=== PATIENT | male | born 1940 | race Caucasian/White ===

== ENCOUNTER → 2017-12-05 12:55 | Outpatient (CLI) | payer MEDICARE, SELFPAY ==
[2017-12-05 15:36] LABS: Prostate Specific Antigen < 0.064 ng/mL (0.10-4.00)
== END ==
PROVIDERS: Family Provider Radiology Radiation Oncology; PCP Internal Medicine; Visit Provider Urology
DX: C61 Malignant neoplasm of prostate (principal)
CPT/HCPCS: 36415; 84153

== ENCOUNTER → 2017-12-30 11:13 | Outpatient (CLI) | payer MEDICARE, SELFPAY ==
--- NOTE | 2017-12-30 | DI.RAD.S_ITS ---
PROCEDURE: XR HIP W PEL IF DONE LT 2V INDICATIONS: 77 year-old male with left hip pain and prostate cancer. TECHNIQUE: AP pelvis with lateral view(s) of the left hip(s). COMPARISON: None. FINDINGS: Bones: No fractures or dislocations. Pelvic ring appears intact. No hip joint degeneration. No suspicious bony lesions. Soft tissues: The visualized bowel gas pattern is normal. No suspicious soft tissue calcifications. Multiple bilateral pelvic phleboliths are unchanged. Patient is status post prostatectomy and bilateral iliac lymph node dissection. IMPRESSION: No imaging explanation for left hip joint region pain. Dictated by: Manuel Schwartz M.D. on 12/30/2017 at 12:05 Approved by: Manuel Schwartz M.D. on 12/30/2017 at 12:06
--- NOTE | 2017-12-30 | DI.RAD.S_ITS ---
PROCEDURE: XR LUMBAR SPINE 2-3V INDICATIONS: 77-year-old male with low back pain and prostate cancer. TECHNIQUE: 3 views of the lumbar spine were acquired. COMPARISON: [facility], ADEN, L-SPINE 2-3 VIEWS, 04/09/2017, 11:19. [facility], CR, SPINE LUMB 6+VW, 11/21/2015, 9:03. FINDINGS: Bones: 5 uzp-par-vpoifel vertebrae are present. There is normal bony alignment. Mid and lower lumbar spine disc and facet joint degeneration is unchanged. No vertebral body compression fractures. No suspicious bony lesions. Soft tissues: Overlying bowel gas pattern is normal. No suspicious soft tissue calcifications. Multiple bilateral pelvic phleboliths are incidentally noted. Patient is status post prostatectomy and iliac lymph node dissection. There is minimal aortic atherosclerosis. IMPRESSION: 1. No new findings to suggest prostate cancer metastases. 2. 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 Dictated by: Manuel Schwartz M.D. on 12/30/2017 at 12:03 Approved by: Manuel Schwartz M.D. on 12/30/2017 at 12:04
--- NOTE | 2017-12-30 | DI.RAD.S_ITS ---
PROCEDURE: XR CERVICAL SPINE 2V OR 3V INDICATIONS: 77-year-old male with prostate cancer. TECHNIQUE: 3 view(s) of the cervical spine were acquired. COMPARISON: [facility], CR, XR CERVICAL SPINE WITH OBLIQUES, 09/30/2017, 15:08. [facility], CR, CERVICAL SPINE 2 OR 3 VIEWS, 04/09/2017, 11:19. FINDINGS: Bones: No fractures or dislocations to the C7 level. The lateral masses of C1 appear intact on the odontoid view. Moderate C5-C6 and C6-C7 disc degeneration is unchanged. No suspicious bony lesions. Soft tissues: No prevertebral soft tissue swelling. IMPRESSION: Lower cervical spine disc degeneration as before, without new findings to suggest prostate cancer metastases. Dictated by: Manuel Schwartz M.D. on 12/30/2017 at 12:06 Approved by: Manuel Schwartz M.D. on 12/30/2017 at 12:08
== END ==
PROVIDERS: Family Provider Radiology Radiation Oncology; PCP Internal Medicine; Visit Provider Urology
DX: M51.36 Other intervertebral disc degeneration, lumbar region (principal); M50.322 Other cervical disc degeneration at C5-C6 level; M54.5 Low back pain; M25.552 Pain in left hip; Z85.46 Personal history of malignant neoplasm of prostate
CPT/HCPCS: 72040; 72100; 73502

== ENCOUNTER → 2018-03-07 08:59 | Outpatient (CLI) | payer MEDICARE, SELFPAY ==
[2018-03-07 10:56] LABS: Prostate Specific Antigen Scrn < 0.064 ng/mL (0.1-4.0)
== END ==
PROVIDERS: Family Provider Radiology Radiation Oncology; Visit Provider Urology
DX: Z85.46 Personal history of malignant neoplasm of prostate (principal)
CPT/HCPCS: 36415; G0103

== ENCOUNTER → 2018-05-27 14:41 | Outpatient (CLI) | payer MEDICARE, SELFPAY ==
[2018-05-27 18:20] LABS: Prostate Specific Antigen < 0.064 ng/mL (0.10-4.00)
== END ==
PROVIDERS: Family Provider Radiology Radiation Oncology; Visit Provider Radiology Radiation Oncology
DX: Z85.46 Personal history of malignant neoplasm of prostate (principal)
CPT/HCPCS: 36415; 84153

== ENCOUNTER 2018-08-19 06:19 | Day surgery (SDC) | payer MEDICARE, SELFPAY ==
[2018-08-19 06:58] VITALS: BP 138/67; PULSE 48; RESP 15; TEMP 36.6; O2SAT 96; BMI 25.9
[2018-08-19] MEDS: PROPARACAINE 0.5% OPHTH SOL 2 DROPS EYE-OP (07:09)
[2018-08-19] MEDS: CATARACT EYE COMPOUND (10 DROPS/SYRINGE) 3 DROPS EYE-OP (07:15)
--- NOTE | 2018-08-19 07:46 | SUR.OPER ---
Supine on eye stretcher, head on extension cradle secured with tape. Arms tucked at sides with blanket. Pillow under knees.
[2018-08-19] MEDS: MOXIFLOXACIN OPHTH DROPS 3 ML BOTTLE 2 DROPS INJ (07:53)
[2018-08-19] MEDS: PHENYLEPHRINE/LIDOCAINE VIAL (OR) 0.2 ML EYE-OP (07:53)
[2018-08-19] MEDS: CHONDROIDTIN/SOD HYALURONATE 1.05 ML SYRINGE INTRAOCULA (07:54)
[2018-08-19] MEDS: TETRACAINE 0.5% OPHTH DROPS 4 ML 2 DROPS EYE-OP (07:54)
[2018-08-19] MEDS: TRIAMCINOLONE 50 MG/5 ML VIAL INJ (07:54)
[2018-08-19] MEDS: LIDOCAINE JELLY 2% 5 ML 1 APPLIC TOP (07:54)
[2018-08-19] MEDS: BALANCED SALT IRRIG SOLN NO.2 500 ML, EPINEPHrine 1 MG IRR (07:55)
--- NOTE | 2018-08-19 08:05 | PM.PREOP ---
Pre-operative Note Interval Note History & Physical reviewed/Exam performed by Physician: No Changes to H&P: No
--- NOTE | 2018-08-19 08:06 | P.OP_ITS ---
Operative Date/Time/Diagnoses Pre-op diagnosis: Nuclear cataract right eye Procedure & Clinicians Procedure: Cataract Surgery Same procedure as scheduled: Yes Surgeon: Troy Jones Anesthesia Type: MAC +/- and Sedation Operative Notes Procedure in detail: Patient brought to the operating suite. Tetracaine drops placed in the right eye. Patient was prepped and draped in sterile manner. Wire lid speculum was placed in the eye. Betadine drops were placed on the eye. This was irrigated. Lidocaine jelly was placed on the eye. A paracentesis port was created with a side-port blade. 0.1 mL 1% preservative free lidocaine was injected into the anterior chamber. The anterior chamber was deepened with viscoelastic. 2.6 mm keratome was used to create a temporal clear corneal incision. Cystotome and Utrata forceps were used to create continuous tear capsulorrhexis. Balanced salt solution was used to hydro dissect the nucleus. The phacoemulsification handpiece was inserted and the nucleus was removed using the stop and chop technique. The irrigation aspiration handpiece was inserted and the remaining cortex was removed. Anterior chamber was deepened with viscoelastic. An Barbosa ZCB00 intraocular lens with a power of 19.5 was injected into the capsular bag. Irrigation aspiration handpiece was inserted and the remaining viscoelastic was removed. Incision was hydrated with balanced salt solution and found to be leak free with pressure with Weck- Gail sponges. 0.1 mL Vigamox injected anterior chamber. 0.3 mL Kenalog 10 mg was injected subconjunctivally. Lid speculum was removed. The patient left the operating room in excellent condition. Complications: none Condition: stable Disposition: same day surgery
[2018-08-19 08:10] VITALS: BP 141/80; PULSE 53; RESP 12; TEMP 36.7; O2SAT 97
== END 2018-08-19 08:18 ==
LOC: OR 06:22
PROVIDERS: Family Provider Radiology Radiation Oncology; Visit Provider Ophthalmology
DX: H25.11 Age-related nuclear cataract, right eye (principal)
CPT/HCPCS: J0171; J2250; J3010; J3301

== ENCOUNTER 2018-09-02 10:23 | Day surgery (SDC) | payer MEDICARE, SELFPAY ==
[2018-09-02] MEDS: PROPARACAINE 0.5% OPHTH SOL 2 DROPS EYE-OP (10:55)
[2018-09-02] MEDS: CATARACT EYE COMPOUND (10 DROPS/SYRINGE) 3 DROPS EYE-OP (10:57)
--- NOTE | 2018-09-02 10:59 | SUR.PREOP ---
After first eye drop was given, patient complained of feeling light headed. Assisted onto stretcher w/2 additional nurses. 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
[2018-09-02 11:01] VITALS: BP 152/74; PULSE 45; RESP 13; TEMP 36.4; O2SAT 98; BMI 25.9
[2018-09-02 11:16] VITALS: BP 136/61; PULSE 42; RESP 14; O2SAT 98
--- NOTE | 2018-09-02 11:19 | PM.PREOP ---
Pre-operative Note Interval Note History & Physical reviewed/Exam performed by Physician: No Changes to H&P: No
--- NOTE | 2018-09-02 11:20 | P.OP_ITS ---
Operative Date/Time/Diagnoses Pre-op diagnosis: Nuclear Cataract Left eye Post-op diagnosis: same Procedure & Clinicians Surgeon: Troy Jones Anesthesia Type: MAC +/- and Sedation Operative Notes Procedure in detail: Patient brought to the operating suite. Tetracaine drops placed in the left eye. Patient was prepped and draped in sterile manner. Wire lid speculum was placed in the eye. Betadine drops were placed on the eye. This was irrigated. Lidocaine jelly was placed on the eye. A paracentesis port was created with a side-port blade. 0.1 mL 1% preservative free lidocaine was injected into the anterior chamber. The anterior chamber was deepened with viscoelastic. 2.6 mm keratome was used to create a temporal clear corneal incision. Cystotome and Utrata forceps were used to create continuous tear capsulorrhexis. Balanced salt solution was used to hydro dissect the nucleus. The phacoemulsification handpiece was inserted and the nucleus was removed using the stop and chop technique. The irrigation aspiration handpiece was inserted and the remaining cortex was removed. Anterior chamber was deepened with viscoelastic. An Barbosa ZCB00 intraocular lens with a power of 20.5 was injected into the capsular bag. Irrigation aspiration handpiece was inserted and the remaining viscoelastic was removed. Incision was hydrated with balanced salt solution and found to be leak free with pressure with Weck- Gail sponges. 0.1 mL Vigamox injected anterior chamber. 0.3 mL Kenalog 10 mg was injected subconjunctivally. Lid speculum was removed. The patient left the operating room in excellent condition. Complications: none Condition: stable Disposition: same day surgery
[2018-09-02] MEDS: MOXIFLOXACIN OPHTH DROPS 3 ML BOTTLE 2 DROPS INJ (11:30)
[2018-09-02] MEDS: PHENYLEPHRINE/LIDOCAINE VIAL (OR) 0.2 ML EYE-OP (11:30)
[2018-09-02] MEDS: TETRACAINE 0.5% OPHTH DROPS 4 ML 2 DROPS EYE-OP (11:31)
[2018-09-02] MEDS: CHONDROIDTIN/SOD HYALURONATE 1.05 ML SYRINGE INTRAOCULA (11:31)
[2018-09-02] MEDS: LIDOCAINE JELLY 2% 5 ML 1 APPLIC TOP (11:31)
[2018-09-02] MEDS: TRIAMCINOLONE 50 MG/5 ML VIAL INJ (11:31)
[2018-09-02] MEDS: BALANCED SALT IRRIG SOLN NO.2 500 ML, EPINEPHrine 1 MG IRR (11:32)
[2018-09-02 13:47] VITALS: BP 121/64; PULSE 49; RESP 12; TEMP 36.8; O2SAT 98
== END 2018-09-02 12:05 | disposition home or self-care (01) ==
LOC: OR 10:25
PROVIDERS: Family Provider Radiology Radiation Oncology; Visit Provider Ophthalmology
DX: H25.12 Age-related nuclear cataract, left eye (principal)
CPT/HCPCS: J0171; J2250; J3301

== ENCOUNTER → 2018-09-16 08:16 | Outpatient (CLI) | payer MEDICARE, SELFPAY ==
--- NOTE | 2018-09-16 | DI.ECHO.S_ITS ---
[place] [facility]---------+ [facility] +---------+ : : [address] : : : : [id number] : : : : Phone: [phone]+ Echocardiogram Report + + :Name: OSIRIS NOLEN Study Date: 09/16/2018 Height: 70 in : :[facility] Exam Location: [facility] Weight: 197 lb : : Gender: Male BSA: 2.1 m2 : :: 1940 Age: 78 yrs BP: 162/62 mmHg: :Reason For Study: Cardiomeagly : :Ordering Physician: Dr. Morel : :Jesse Performed By: Kizzy Ash : :Referring: GIOVANI CARVAJAL : + + Interpretation Summary Left ventricular size is at the upper limits of normal and left ventricular systolic function is normal without focal wall motion abnormalities with the ejection fraction visually estimated to be 60-65%. The right ventricle is at the upper limits of normal in size and right ventricular systolic function is normal. The right ventricular systolic pressure is estimated to be at least 31 mmHg based on an estimated right atrial pressure of 3 mm Hg. Both atria are moderately dilated. There is no significant valvular heart disease. The ascending aorta and aortic arch are mildly enlarged. Procedure: A two-dimensional transthoracic echocardiogram with color flow and Doppler was performed. The study quality was technically adequate. There is no prior echocardiogram noted for this patient. The patient was in normal sinus rhythm during the exam. Left Ventricle: Left ventricular size is at the upper limits of normal. There is normal left ventricular wall thickness. Left ventricular systolic function is normal without focal wall motion abnormalities. The ejection fraction is estimated to be 60-65%. Diastolic function could not be accurately assessed due to contradictory data. Right Ventricle: The right ventricle is at the upper limits of normal in size. The right ventricular systolic function is normal. Atria: Both atria are moderately dilated. The interatrial septum is intact with no evidence for an atrial septal defect. Mitral Valve: The mitral valve is normal in structure and function. There is trace mitral regurgitation. Aortic Valve: The aortic valve is trileaflet. The aortic valve opens well. There is trace aortic regurgitation. Tricuspid Valve: The tricuspid valve is normal in structure and function. There is trace tricuspid regurgitation. The right ventricular systolic pressure is estimated to be at least 31 mmHg based on an estimated right atrial pressure of 3 mm Hg. Pulmonic Valve: The pulmonic valve is normal in structure and function. There is trace pulmonic regurgitation. There is no significant valvular heart disease. Great Vessels: The aortic root is normal size. The ascending aorta is mildly enlarged. The aortic arch is mildly enlarged. The IVC is of normal diameter and collapses greater than 50% with a sniff. This suggests a low right atrial pressure of 3 mm Hg. Pericardium/ Pleura There is no pericardial effusion. There is no pleural effusion. MMode/2D Measurements & Calculations LVIDd: 5.7 cm LVOT diam: 2.4 cm LVIDs: 3.6 cm Ao root diam: 3.6 cm FS: 35.7 % asc Aorta Diam: 3.8 cm IVSd: 1.1 cm Ao Arch Diam (Prox Trans): 3.3 cm LVPWd: 1.1 cm LV boss. diameter/BSA (cm/m^2): 2.7 LV sys. diameter/BSA (cm/m^2): 1.8 LA A2 area: 24.3 cm2 RA long axis: 4.9 cm LA A4 area: 27.0 cm2 RA area: 23.4 cm2 LA length (vol): 5.8 cm RA vol: 94.6 ml LA vol: 96.0 ml RA : 45.6 ml/m2 LA vol index: 46.3 ml/m2 RVD1 (basal): 4.8 cm TAPSE: 3.4 cm Doppler Measurements & Calculations Ao V2 max: 141.4 cm/sec LVOT Max Tong: 121.3 cm/sec Ao V2 mean: 93.5 cm/sec LV V1 max P.9 mmHg Ao max P.0 mmHg LV V1 VTI: 25.7 cm Ao mean P.0 mmHg DERRICK(I,D): 3.6 cm2 Ao V2 VTI: 31.6 cm DERRICK(V,D): 3.8 cm2 sev ratio: 0.81 DERRICK indexed to BSA (cm^2/m^2): 1.7 MV E max tong: 74.2 cm/sec TR max tong: 262.7 cm/sec MV A max tong: 65.2 cm/sec TR max P.6 mmHg MV E/A: 1.1 PA V2 max: 70.6 cm/sec Med Peak E' Tong: 8.4 cm/sec PA V2 mean: 46.7 cm/sec E/E' med: 8.8 PA mean P.0 mmHg Lat Peak E' Tong: 9.7 cm/sec PA pr(Accel): -0.85 mmHg E/E' lat: 7.7 E/e' average: 8.2 MV dec time: 0.24 sec SV(LVOT): 114.0 ml Reading Physician:PM
== END ==
PROVIDERS: PCP Internal Medicine; Visit Provider Internal Medicine
DX: I51.7 Cardiomegaly (principal)
CPT/HCPCS: 93306

== ENCOUNTER → 2018-10-30 11:36 | Outpatient (CLI) | payer MEDICARE, SELFPAY ==
--- NOTE | 2018-10-30 | DI.CT.S_ITS ---
PROCEDURE: CT KIDNEY URETER BLADDER (KUB) INDICATIONS: Right flank pain TECHNIQUE: Noncontrast 5 mm thick sections acquired from the diaphragms to the symphysis. 5 mm thick coronal and sagittal reformats were then performed. For radiation dose reduction, the following was used: automated exposure control, adjustment of mA and/or kV according to patient size. COMPARISON: [facility], CT, CHEST/ABD/PEL WITH CONTRAST, 04/03/2017, 8:31. [facility], MR, MR PELVIS WITHOUT CONTRAST, 06/13/2017, 15:07. FINDINGS: Image quality: Excellent. Lung bases: Lung bases are clear. Heart size is normal. Urinary system: Both kidneys are normal in size. No kidney stones. No hydronephrosis or perinephric fat stranding. Both ureters appear non-dilated throughout their expected courses. Bladder wall thickness is normal; no calcified bladder stones. Prostate is surgically absent. Other solid organs: There are a couple of 1-1.5 cm indeterminate hepatic hypodensities, one in the right hepatic lobe and one in the left hepatic lobe, most likely cysts. Liver is normal in size. Gallbladder is normal. Pancreas is normal in contours. Spleen is normal in size. No adrenal nodules. Peritoneum and bowel: Unenhanced bowel loops demonstrate normal wall thickness and caliber. There are a few colonic diverticula scattered in colon. No free fluid or air. Nodes and vessels: No retroperitoneal or mesenteric adenopathy by size criteria. Aorta and inferior vena cava are normal in caliber. Abdominal wall: No ventral hernias. Pelvis: No free pelvic fluid. No inguinal hernias or adenopathy. Bones: No suspicious bony lesions. No vertebral body compression fractures. IMPRESSION: 1. No renal stone hydronephrosis. 2. Prostatectomy. 3. A couple of 1-1.5 cm indeterminate hepatic hypodensities in liver, most likely a cysts. 4. Mild diverticulosis without acute diverticulitis. Dictated by: Tamar Salazar M.D. on 10/30/2018 at 12:22 Approved by: Tamar Salazar M.D. on 10/30/2018 at 12:36
== END ==
PROVIDERS: PCP Internal Medicine; Visit Provider Urology
DX: R10.9 Unspecified abdominal pain (principal); K57.90 Diverticulosis of intestine, part unspecified, without perforation or abscess without bleeding
CPT/HCPCS: 74176

== ENCOUNTER 2019-03-06 12:27 | Day surgery (SDC) | payer MEDICARE, SELFPAY ==
--- NOTE | 2019-03-06 | PATH_ITS ---
[facility] Accession Number: [id number] . 01 Material submitted: . colon - POLYP AT CECUM . 02 Diagnosis: Polyp at Cecum: Portions of tubular adenoma x 2; negative for high-grade dysplasia. [facility]/03/09/2019 . 02 Electronically signed: . Ameena Fulton MD, Pathologist NPI- [id number] . 01 Gross description: . POLYP AT CECUM: Received in formalin are 2 fragment(s) of gomez, soft tissue measuring 0.9 x 0.3 x 0.2 cm to 0.4 x 0.4 x 0.4 cm submitted entirely in 1 cassette(s) /CKI /CKI . 02 Pathologist provided ICD-10: K63.5 . 02 CPT . 099735 Performed at: 01 [facility] [address] [id number] MD Aleks Mac MD Phone: [phone] Performed at: 02 [facility] [place] [address] [place], [place] [id number] MD Nupur Ontiveros MD Phone: [phone]
[2019-03-06 12:47] VITALS: BP 125/74; PULSE 64; RESP 15; TEMP 36.8; O2SAT 95; BMI 25.0
--- NOTE | 2019-03-06 12:56 | PM.HP.1 ---
History of Present Illness Date Patient Seen: 03/06/19 Time Patient Seen: 12:56 Chief complaint: [id number] SCREENING COLONSCOPY Narrative: Patient is here for screening colonoscopy is asymptomatic. He has had polyps in the past and is now on a 5 year colonoscopy plan. Patient History Social History household members: spouse Family & Social History Social History: household members spouse Meds Home Medications Medication Instructions Recorded Confirmed Type VITAMIN D (Vitamin D3) 1,000 units PO QDAY #0 06/27/12 09/02/18 History loratadine [Claritin] 10 mg PO Q DAY #0 06/27/12 09/02/18 History simvastatin 10 mg PO QDAY #0 06/27/12 09/02/18 History meloxicam 15 mg PO DAILY 09/02/18 09/02/18 History Allergies Allergy/AdvReac Type Severity Reaction Status Date / Time No Known Drug Allergies Allergy Unknown Verified 09/02/18 10:50 [NO KNOWN DRUG ALLERGIES] Review of Systems Review of Systems All systems reviewed & are unremarkable except as noted in HPI and below Exam Vital Signs (past 8 hours): - 03/06/19 12:47 Temperature 98.2 F Pulse Rate 64 Respiratory Rate 15 Blood Pressure 125/74 Pulse Oximetry 95 Oxygen Delivery Method Room Air Narrative Exam Narrative: Patient is alert and oriented He is asymptomatic Lungs are clear Heart regular rhythm no murmur Abdomen soft nontender no masses no organomegaly Rectal will be done at colonoscopy Assessment & Plan Assessment & Plan narrative: Patient is at polyps in the past removed by the colonoscope. At 1 point he was having scopes every 3 years now he is on a 5 year plan. He is asymptomatic with no melena and no hematochezia no pain. He understands the nature of the procedure and agrees with no further questions
[2019-03-06] MEDS: SODIUM CHLORIDE 0.9% 1,000 ML 200 ML IV (13:06)
[2019-03-06] MEDS: fentaNYL 250 MCG/5 ML INJ IV (14:00)
[2019-03-06] MEDS: MIDAZOLAM 5 MG/5 ML VIAL IV (14:01)
--- NOTE | 2019-03-06 14:03 | PM.OP.ENDO ---
Operative Date/Time/Diagnoses Date of procedure: 03/06/19 Time of procedure: 14:03 Pre-op diagnosis: Screening colonoscopy Post-op diagnosis: other (5 mm polyp in the cecum removed) Procedure & Clinicians Study performed: Total colonoscopy to the cecum with cecal polypectomy Same procedure as scheduled: Yes Surgeon: Jadon Suggs Procedure Notes SCOAP/Timeout: Was done Procedure in detail: The patient was properly identified during surgical pause given a total of 5 mg of Versed and 100 micro g of fentanyl throughout the procedure which was very well tolerated. The flexible fiberoptic colonoscope inserted transanally to the cecum. Patient had 1 polyp a 5 mm sessile polyp seen in the cecum which I removed using the cold forceps. This was submitted for histology. Patient has scant diverticulosis in the sigmoid also. No other abnormalities encountered. Procedure was well tolerated Scope withdrawal time: 10 Sedation minutes: 20 Findings: polyp Impression: 5 mm cecal polyp removed Recommendations: Colonscopy in 3 years Disposition: PACU
[2019-03-06 14:08] VITALS: BP 129/64; PULSE 56; RESP 12; TEMP 36.3; O2SAT 95
[2019-03-06 14:13] VITALS: BP 133/61; PULSE 54; RESP 13; O2SAT 95
[2019-03-06 14:18] VITALS: BP 108/57; PULSE 65; RESP 12; O2SAT 95
[2019-03-06 14:25] VITALS: BP 115/63; PULSE 58; RESP 15; O2SAT 95
[2019-03-06 14:53] VITALS: BP 118/67; PULSE 54; RESP 18; TEMP 36.4; O2SAT 98
== END 2019-03-06 14:56 | disposition home or self-care (01) ==
PROVIDERS: PCP Internal Medicine; Visit Provider Surgery
PROC: 0DJD8ZZ Inspection of Lower Intestinal Tract, Via Natural or Artificial Opening Endoscopic (ICD-10-PCS; CPT 45378; principal; 2019-03-06 13:45)
DX: Z86.010 Personal history of colon polyps (principal); D12.0 Benign neoplasm of cecum
CPT/HCPCS: 45380; 88305; 99152; J2250; J3010

== ENCOUNTER → 2019-04-14 12:37 | Outpatient (CLI) | payer MEDICARE, SELFPAY ==
[2019-04-14 15:38] LABS: Prostate Specific Antigen < 0.064 ng/mL (0.10-4.00)
== END ==
PROVIDERS: Family Provider Internal Medicine; PCP Internal Medicine; Visit Provider Urology
DX: C61 Malignant neoplasm of prostate (principal)
CPT/HCPCS: 36415; 84153

== ENCOUNTER → 2019-04-16 09:59 | Outpatient (CLI) | payer MEDICARE, SELFPAY ==
[2019-04-16 10:53] LABS: Aspartate Aminotransferase 19 IU/L (17-59); Cholesterol 173 mg/dL (140-199); HDL Cholesterol 68 mg/dL (40-60); LDL Cholesterol Calculated 62 mg/dL (<100); Triglycerides 214 mg/dL (35-150)
== END ==
PROVIDERS: PCP Internal Medicine; Visit Provider Internal Medicine
DX: E78.2 Mixed hyperlipidemia (principal)
CPT/HCPCS: 36415; 80061; 84450

== ENCOUNTER → 2019-06-01 08:11 | Outpatient (CLI) | payer MEDICARE, SELFPAY ==
--- NOTE | 2019-06-01 | DI.MG.S_ITS ---
MALE BILATERAL DIGITAL DIAGNOSTIC MAMMOGRAM 3D/2D: 06/01/2019 CLINICAL: Breast pain Baseline exam. No prior exams were available for comparison. There is gynecomastia in the right breast in the sub-areolar depth that correlates with clinical concern and reported pain. There also is gynecomastia in the left breast in the sub-areolar depth. No significant masses, calcifications, or other findings are seen in either breast. IMPRESSION: There is no mammographic evidence of malignancy. Recommend clinical follow up for continued symptomatology. Findings and recommendations were discussed with the patient during today's visit. This exam was interpreted at Station ID: [id number]. NOTE: For mammograms, a report in lay terms will be sent to the patient. Approximately 15% of breast malignancies will not be visualized mammographically. In the management of a palpable breast mass, a negative mammogram must not discourage biopsy of a clinically suspicious lesion. Electronically Signed By: Edward Botello M.D. aty/:06/01/2019 08:54:59 ACR BI-RADS Category 2: Benign Finding(s) 3342F
== END ==
PROVIDERS: PCP Internal Medicine; Visit Provider Internal Medicine
DX: N64.4 Mastodynia (principal); N62 Hypertrophy of breast
CPT/HCPCS: 77066; G0279

== ENCOUNTER 2020-01-15 08:04 | Emergency (ER) | payer MEDICARE, SELFPAY ==
[2020-01-15 08:23] VITALS: BP 194/84; PULSE 54; RESP 18; TEMP 36.4; O2SAT 97; BMI 25.1
--- NOTE | 2020-01-15 08:32 | DI.CT.S_ITS ---
PROCEDURE: CT ABDOMEN PELVIS WO CON INDICATIONS: non-contrast stone study for left flank pain TECHNIQUE: Noncontrast 5 mm thick sections acquired from the diaphragms to the symphysis. 5 mm thick coronal and sagittal reformats were then performed. For radiation dose reduction, the following was used: automated exposure control, adjustment of mA and/or kV according to patient size. COMPARISON: [facility], CT, CHEST/ABD/PEL WITH CONTRAST, 04/03/2017, 8:31. [facility], CT, CT KIDNEY URETER BLADDER (KUB), 10/30/2018, 11:42. FINDINGS: Image quality: Excellent. Lung bases: There is minimal scarring or atelectasis in the left lung base. Heart size is normal. Urinary system: No renal stones or hydronephrosis. Mild nonspecific perinephric stranding is redemonstrated bilaterally. A cortical cyst is again noted posteriorly in the left kidney. Both ureters appear non-dilated throughout their expected courses. Bladder wall thickness is normal; no calcified bladder stones. The prostate is surgically absent. No discrete mass demonstrated in the surgical bed. Other solid organs: Evaluation of the liver demonstrates 2 stable small hepatic cysts. Gallbladder appears within normal limits without calcified gallstones. Pancreas is normal in contours without peripancreatic fat stranding or fluid collections. Spleen is normal in size. No adrenal nodules. Kidneys demonstrate no hydronephrosis. Peritoneum and bowel: Unenhanced bowel loops demonstrate normal wall thickness and caliber. The appendix is normal in appearance. There is colonic diverticulosis without acute diverticulitis. No free fluid or air. Nodes and vessels: No retroperitoneal or mesenteric adenopathy by size criteria. Aorta and inferior vena cava are normal in caliber. Abdominal wall: No ventral hernias. Pelvis: No free pelvic fluid. No inguinal hernias or adenopathy. Bones: No suspicious bony lesions. No vertebral body compression fractures. IMPRESSION: 1. No evidence of nephrolithiasis or obstructive uropathy. 2. Colonic diverticulosis without acute diverticulitis. Dictated by: Aleks Phelps M.D. on 01/15/2020 at 9:04 Approved by: Aleks Phelps M.D. on 01/15/2020 at 9:16
[2020-01-15 08:34] LABS: Add Manual Diff / Slide Review NO; Basophils Absolute Auto 0 /uL (0-100); Basophils Percent Auto 1.1 % (0-2); Eosinophils Absolute Auto 100 /uL (0-450); Eosinophils Percent Auto 2.9 % (2-4); Hematocrit 42.8 % (41-53); Hemoglobin 15.1 g/dL (13.5-17.5); Lymphocytes Absolute Auto 1100 /uL (1100-4500); Mean Corpuscular HGB Conc 35.4 % (30-36); Mean Corpuscular Hemoglobin 34.3 PG (26-34); Mean Corpuscular Volume 96.9 fL (80-100); Monocytes Absolute Auto 300 /uL (0-900); Monocytes Percent Auto 9.7 % (3-14); Neutrophils Absolute Auto 1800 /uL (1500-7000); Neutrophils Percent Auto 53.3 % (50-75); Platelet Count 148 X10^3/uL (150-400); Red Blood Cell Count 4.42 X10^6/uL (4.5-5.9); Red Cell Distribution Width 12.4 % (11.6-14.8); White Blood Cell Count 3.4 X10^3/uL (4.5-11.0)
[2020-01-15 08:35] LABS: INR 0.9 (0.9-1.3); Prothrombin Time 10.6 SECONDS (10.1-12.7)
[2020-01-15 08:38] LABS: PTT Partial Thromboplastin Tim 31 SECONDS (26.4-36.2)
[2020-01-15 08:41] LABS: Alanine Aminotransferase 25 IU/L (<50); Albumin 4.7 g/dL (3.5-5.0); Albumin Globulin Ratio 1.7 (1.0-2.8); Alkaline Phosphatase 77 U/L (38-126); Aspartate Aminotransferase 30 IU/L (17-59); BUN Creatinine Ratio 30.2 (6-22); Bilirubin Total 0.9 mg/dL (0.2-1.3); Blood Urea Nitrogen 19 mg/dL (9-20); Calcium 9.7 mg/dL (8.4-10.2); Carbon Dioxide 25 mmol/L (22-32); Chloride 106 mmol/L (98-107); Estimated Glomerular Filt Rate > 60.0 mL/min (>60); Globulin 2.8 g/dL (1.7-4.1); Glucose 105 mg/dL (80-110); HEMOLYSIS < 15 (0-50); Lipase 90 U/L (23-300); Sodium 138 mmol/L (137-145); Total Protein 7.5 g/dL (6.3-8.2)
[2020-01-15] MEDS: KETOROLAC 60 MG/2 ML VIAL 15 MG IV (09:07)
[2020-01-15 09:12] VITALS: BP 157/76; PULSE 46; RESP 12; O2SAT 96
--- NOTE | 2020-01-15 09:36 | ED_ITS ---
HPI - Male Genitourinary General Chief complaint: Urogenital-Male Stated complaint: Thinks hes passing a kidney stone Time Seen by Provider: 01/15/20 08:25 Source: patient Mode of arrival: EMS Limitations: no limitations History of Present Illness HPI Narrative: CC: Left flank pain HPI: The patient is a 79-year-old male who presents to the emergency department with left flank pain. The pains only came on like turning on a light switch. The pain was in his left flank which was severe throbbing dull achy pain. The patient states that he had similar pain in the past 2-3 years ago when he was diagnosed to have a kidney stone. Pain was intermittently sharp and stabbing at other times crampy. It is 10/10 in intensity. He denies any fall or injury. The pain is crampy in nature. There is no radiation of the pain and discomfort. At this time the pain is 3 to 4/10 in intensity. He has no medical allergies or allergies arm to pain medicine. He denies any diabetes mellitus hypertension myocardial infarction COPD or asthma. Is a former smoker drinks alcohol socially does not use marijuana. Related Data Home Medications Medication Instructions Recorded Confirmed VITAMIN D (Vitamin D3) 1,000 units PO QDAY #0 06/27/12 03/06/19 loratadine [Claritin] 10 mg PO Q DAY #0 06/27/12 03/06/19 simvastatin 10 mg PO QDAY #0 06/27/12 03/06/19 meloxicam 15 mg PO DAILY 09/02/18 03/06/19 Previous Rx's Medication Instructions Recorded cefdinir 300 mg PO BID #14 cap 01/15/20 cyclobenzaprine 10 mg PO TID PRN #15 tab 01/15/20 hydrocodone-acetaminophen [[place]] 1 tab PO Q6H PRN #10 tab 01/15/20 Allergies Allergy/AdvReac Type Severity Reaction Status Date / Time No Known Drug Allergies Allergy Unknown Verified 01/15/20 08:32 [NO KNOWN DRUG ALLERGIES] Review of Systems Review of Systems Narrative: REVIEW OF SYSTEMS: CONSTITUTIONAL: No fever chills or sweats. NEUROLOGICAL: No headache numbness tingling paresthesias anesthesia is or paresis. EENT: No loss of vision change in vision sore throat trouble swallowing. CARDIO-PULMONARY: No chest pain cough shortness of breath difficulty in breathing palpitations or dizziness. GASTROINTESTINAL: Abdominal pain as noted, nauseous but no vomiting. No diarrhea GENITAL URINARY: No urinary symptoms. No no hematuria. MUSCULOSKELETAL/ RHEUMATOLOGICAL: No back pain other than left flank pain DERMATOLOGICAL: No rash or bruising. Patient History Social History household members: spouse Smoking Status: Former smoker Smoking Status: Former smoker alcohol intake frequency: 0-2 drinks per day Substance Use Type: does not use Exam Narrative Exam Narrative: PHYSICAL EXAM: CONSTITUTIONAL: Awake, Alert, Oriented, Coherent, Cooperative in NAD. Does not appear toxic or ill. HEAD: AT/NC EENT: PERRL, FROM of eyes. NOSE:No epistaxis or nasal drainage MOUTH:Oral mucosa is moist and pink, posterior pharynx is without erythema or exudate. NECK: Supple, no obvious JVD, Trachea is midline without stridor, no palpable LN. SPINE: Palpationof the cervical, Thoracic, Lumbar or Sacral spine reveals no gross deformity or tenderness. Mild plus-minus left costovertebral angle tenderness THORAX: No deformity, retractions, chest wall tenderness. LUNGS: Clear, symmetrical breath sounds without respiratory distress. HEART: Normal heart tones, regular rhythm and rate without murmur. ABDOMEN: Abdomen is soft plus minus tenderness in the left flank anteriorly without guarding rebound or rigidity. No palpable organomegaly. LYMPHATIC: no palpable lymph nodes or spleen. EXTREMITIES: No edema, deformity, tenderness or cyanosis. SKIN: No rash, bruising, petechiae or purpura. NEURO: Awake, alert, oriented, conversive, cranial nerves II-XII are symmetrical , moves all 4 extremities and is ambulatory. MENTAL HEALTH: Does not appear anxious or depressed. Initial Vital Signs Initial Vital Signs: Vital Signs Temperature 97.5 F L 01/15/20 08:23 Pulse Rate 54 L 01/15/20 08:23 Respiratory Rate 18 01/15/20 08:23 Blood Pressure 194/84 H 01/15/20 08:23 Pulse Oximetry 97 01/15/20 08:23 Course Course Course Narrative: 1018: Noncontrast CT scan of the patient's abdomen reveals no evidence of nephrolithiasis or obstructive uropathy. 2. Colonic diverticulosis without acute diverticulitis. The patient had some mild perinephric fat stranding around the left kidney. 1023: The patient's urine dipstick was positive for leukocytes and hematuria. The patient's CT scan reveals no evidence of ureteral nephrosis or hydronephrosis. The patient will be treated as though he is having an acute urinary tract infection. He will be prescribed cefdinir, [place] 10 tablets 1 tablet every 6 hours for severe pain and discomfort as a rescue medication. The patient will be advised to follow-up with his primary care physician to be re- evaluated in 48-72 hours. Orders Ordered: Discontinued Medications Cefdinir (Omnicef) 300 mg PO NOW ONE Stop: 01/15/20 10:24 Last Admin: 01/15/20 10:39 Dose: 300 mg Documented by: DARRYN Ketorolac Tromethamine (Toradol) 15 mg IV NOW ONE Stop: 01/15/20 08:34 Last Admin: 01/15/20 09:07 Dose: 15 mg Documented by: DARRYN Ondansetron HCl (Zofran) 4 mg IV NOW ONE Stop: 01/15/20 08:34 Last Admin: 01/15/20 09:41 Dose: Not Given Documented by: DARRYN Vital Signs Vital signs: Vital Signs - 8 hr 01/15/20 08:23 01/15/20 09:12 Temperature 97.5 F L Pulse Rate 54 L 46 L Respiratory Rate 18 12 Blood Pressure 194/84 H Blood Pressure [Right Arm] 157/76 H Pulse Oximetry 97 96 MDM - Male Genitourinary Medical Records Attestation: I reviewed the patient's medical records. Lab Data Attestation: I reviewed the patient's lab results. Result diagrams: 01/15/20 08:19 01/15/20 08:19 Labs: Lab Results 01/15/20 01/15/20 01/15/20 Range/Units 08:19 08:19 08:19 WBC 3.4 L (4.5-11.0) X10^3/uL RBC 4.42 L (4.5-5.9) X10^6/uL Hgb 15.1 (13.5-17.5) g/dL Hct 42.8 (41-53) % MCV 96.9 (80-100) fL MCH 34.3 H (26-34) PG MCHC 35.4 (30-36) % RDW 12.4 (11.6-14.8) % Plt Count 148 L (150-400) X10^3/uL Neut % (Auto) 53.3 (50-75) % Lymph % (Auto) 33.0 (25-40) % Rich % (Auto) 9.7 (3-14) % Eos % (Auto) 2.9 (2-4) % Baso % (Auto) 1.1 (0-2) % Neut # (Auto) 1800 (9021-8605) /uL Lymph # (Auto) 1100 (5439-0301) /uL Rich # (Auto) 300 (0-900) /uL Eos # (Auto) 100 (0-450) /uL Baso # (Auto) 0 (0-100) /uL PT 10.6 (10.1-12.7) SECONDS INR 0.9 (0.9-1.3) APTT 31 (26.4-36.2) SECONDS Sodium 138 (137-145) mmol/L Potassium 4.0 (3.4-5.1) mmol/L Chloride 106 (98-107) mmol/L Carbon Dioxide 25 (22-32) mmol/L BUN 19 (9-20) mg/dL Creatinine 0.63 L (0.66-1.25) mg/dL Estimated GFR > 60.0 (>60) mL/min BUN/Creatinine Ratio 30.2 H (6-22) Glucose 105 (80-110) mg/dL Calcium 9.7 (8.4-10.2) mg/dL Total Bilirubin 0.9 (0.2-1.3) mg/dL AST 30 (17-59) IU/L ALT 25 (<50) IU/L Alkaline Phosphatase 77 (38-126) U/L Total Protein 7.5 (6.3-8.2) g/dL Albumin 4.7 (3.5-5.0) g/dL Globulin 2.8 (1.7-4.1) g/dL Albumin/Globulin Ratio 1.7 (1.0-2.8) Lipase 90 (23-300) U/L Urine Dip Bedside Urine Glucose Negative Bedside Urine Bilirubin - Negative Bedside Urine Ketone - Negative Urine Specific Wilburn 1.005 Bedside Urine Occult Blood - Negative Bedside Urine pH 6.0 Bedside Urine Protein - Negative Bedside Urine Urobilinogen - Negative Bedside Urine Nitrite - Negative Bedside Urine Leukocytes - Negative Esterase ECG Data Attestation: I personally reviewed and interpreted this ECG as follows: Interpretation: The patient's EKG obtained on January 15, 2020 at 8:31 a.m. revealed a sinus bradycardia with a ventricular rate of 50. MI interval is normal at 192 milliseconds QRS duration is 102 milliseconds QTC is 424 millisec onds. The patient has a left axis deviation. The patient has inverted T-waves in leads III and V1. There are no other acute diagnostic ST segment changes. The patient has some nonspecific ST depressions in leads V4 V5 V6 I and aVL question be suggesting some lateral wall ischemia. There are no ST segment changes or T-wave changes to suggest acute injury pattern. Discharge Plan Departure Patient Disposition: Home Clinical Impression: Acute flank pain, Acute pyelonephritis Urinary tract infection Qualifiers: Urinary tract infection type: site unspecified Hematuria presence: with hematuria Qualified Code(s): N39.0 - Urinary tract infection, site not specified Discharge Date/Time: 01/15/20 11:38 Instructions: DI for Kidney Infection, DI for Urinary Tract Infection (UTI) Activity Restrictions/Additional Instructions: 1. Drink 2-3 liters of fluid per day 2. take Cefdinir 300 twice a day for the next 7 days. 3. Follow-up with your primary care physician to be re-evaluated. 4,. Your CT scan did not reveal any evidence of a kidney stone. You may have a kidney infection. If you develop worsening pain fever passing-out persistent nausea and vomiting you need to return to the emergency department despite taking these medications. Prescriptions: New cefdinir 300 mg capsule 300 mg PO BID Qty: 14 RF: 0 hydrocodone-acetaminophen [[place]] 5-325 mg tablet 1 tab PO Q6H PRN (Reason: pain) Qty: 10 RF: 0 cyclobenzaprine 10 mg tablet 10 mg PO TID PRN (Reason: muscle spasm) Qty: 15 RF: 0 No Action simvastatin 10 MG tablet 10 mg PO QDAY Qty: 0 RF: 0 loratadine [Claritin] 10 MG tablet 10 mg PO Q DAY Qty: 0 RF: 0 VITAMIN D (Vitamin D3) 1,000 units PO QDAY Qty: 0 RF: 0 meloxicam 15 mg Tablet 15 mg PO DAILY RF: 0 Referrals: Adriel Molina MD [Primary Care Provider] -
[2020-01-15 10:30] VITALS: BP 136/73; PULSE 48; RESP 12; O2SAT 97
[2020-01-15] MEDS: CEFDINIR 300 MG CAPSULE PO (10:39)
[2020-01-15 11:36] VITALS: BP 165/76; PULSE 42; RESP 14; O2SAT 97
== END 2020-01-15 11:38 | disposition home or self-care (01) ==
PROVIDERS: Emergency Provider Emergency Medicine; PCP Internal Medicine
DX: N10 Acute pyelonephritis (principal); Z87.442 Personal history of urinary calculi; N39.0 Urinary tract infection, site not specified; R10.9 Unspecified abdominal pain
CPT/HCPCS: 36415; 74176; 80053; 81003; 83690; 85025; 85610; 85730; 93005; 96374; 99284; J1885

== ENCOUNTER → 2020-01-27 10:19 | Outpatient (CLI) | payer MEDICARE, SELFPAY ==
[2020-01-27 12:12] LABS: Prostate Specific Antigen < 0.064 ng/mL (0.10-4.00)
== END ==
PROVIDERS: PCP Internal Medicine; Referring Provider Urology; Visit Provider Urology
DX: Z85.46 Personal history of malignant neoplasm of prostate (principal)
CPT/HCPCS: 36415; 84153

== ENCOUNTER → 2020-03-11 08:03 | Outpatient (CLI) | payer MEDICARE, SELFPAY ==
--- NOTE | 2020-03-11 | DI.MRI.S_ITS ---
PROCEDURE: MR LUMBAR SPINE WO CON INDICATIONS: Low back pain TECHNIQUE: Noncontrast sagittal T1 spin echo and T2 fast echo, sagittal STIR, axial T1 and T2 fast spin echo through the lumbar spine. In cases with scoliosis, additional coronal T2 fast spin echo may be performed. COMPARISON: None. FINDINGS: Image quality: Excellent. Alignment and Curvature: Grade 1 retrolisthesis of L2 on L3 Bone Marrow: No fracture. Multilevel degenerative endplate sclerosis and spurring. Diffuse facet arthropathy. Spinal Cord: Conus medullaris terminates at the L2 level. Visualized cord demonstrates normal signal and size. Paraspinous Soft Tissues: Presumed bilateral T2 hyperintense renal cysts L1-L2: Facet arthropathy. Mild narrowing of the left neural foramen with slight nerve root compression. No canal or right foraminal stenosis. L2-L3: Mild canal narrowing. Partial effacement of both lateral recesses with bilaterally symmetric appearance. Mild to moderate right foraminal stenosis. Moderate left foraminal stenosis with slight nerve root compression. There is asymmetric marked hypertrophic appearance of the left facet joint, with associated mild posterior left-sided canal narrowing. L3-L4: Slight dorsal epidural lipomatosis. Mild canal narrowing. Partial effacement of both lateral recesses with bilaterally symmetric appearance. Mild left foraminal stenosis. Moderate right foraminal stenosis with nerve root compression. L4-L5: No definite canal stenosis. Lateral recesses appear patent. Mild left foraminal stenosis. Mild to moderate right foraminal narrowing with borderline nerve root compression. L5-S1: No canal stenosis. Lateral recesses appear grossly patent. Severe right foraminal stenosis with slight nerve root compression. Mild to moderate left foraminal narrowing. IMPRESSION: Multilevel lumbar spondylosis and facet arthropathy. Numerous bilateral foraminal stenosis as detailed above by spinal level. No high-grade canal stenosis. Dictated by: Jose Reynolds M.D. on 03/11/2020 at 9:28 Approved by: Jose Reynolds M.D. on 03/11/2020 at 10:27
== END ==
PROVIDERS: PCP Internal Medicine; Referring Provider Internal Medicine; Visit Provider Internal Medicine
DX: M54.5 Low back pain (principal); M47.816 Spondylosis without myelopathy or radiculopathy, lumbar region; M48.061 Spinal stenosis, lumbar region without neurogenic claudication; M48.07 Spinal stenosis, lumbosacral region; M43.16 Spondylolisthesis, lumbar region
CPT/HCPCS: 72148

== ENCOUNTER → 2020-03-15 12:27 | Outpatient (CLI) | payer MEDICARE, SELFPAY ==
--- NOTE | 2020-03-15 12:28 | DI.RAD.S_ITS ---
PROCEDURE: XR LUMBAR SPINE MIN 4V INDICATIONS: lumbar radiculopathy TECHNIQUE: 5 views of the lumbar spine were acquired. COMPARISON: [facility], MR, MR LUMBAR SPINE WO CON, 03/11/2020, 8:26. [facility], CT, CT ABDOMEN PELVIS WO CON, 01/15/2020, 8:29. [facility], CR, XR LUMBAR SPINE 2-3V, 12/30/2017, 11:10. [facility], CR, L-SPINE 2-3 VIEWS, 04/09/2017, 11:19. FINDINGS: Bones: 5 nonrib-bearing vertebrae are present. There is sacralization of the L5 vertebral body. There is normal bony alignment. No vertebral body compression fractures. No suspicious bony lesions identified. Extensive facet joint hypertrophy in the lower lumbar spine. There is bony narrowing of the L4-L5 and L5-S1 neural foramen. Hxmi-uf-barrhopm multilevel intervertebral disc space height loss. Small anterior osteophytes. Overall findings similar to the prior radiographs. Soft tissues: Overlying bowel gas pattern is normal. No suspicious soft tissue calcifications. Multiple clips in the pelvis. Oblique images: No pars defects. IMPRESSION: [id number]-ixqvnfry degenerative change and multilevel disc disease similar to the prior exam. Dictated by: Gigi El M.D. on 03/15/2020 at 13:38 Approved by: Gigi El M.D. on 03/15/2020 at 13:44
== END ==
PROVIDERS: PCP Internal Medicine; Referring Provider Internal Medicine; Visit Provider Physical Medicine & Rehabilitation
DX: M47.26 Other spondylosis with radiculopathy, lumbar region (principal); M51.16 Intervertebral disc disorders with radiculopathy, lumbar region
CPT/HCPCS: 72110

== ENCOUNTER → 2020-04-20 08:46 | Outpatient (CLI) | payer MEDICARE, SELFPAY ==
[2020-04-20 09:42] LABS: Add Manual Diff / Slide Review NO; Basophils Absolute Auto 0 /uL (0-100); Basophils Percent Auto 1.2 % (0-2); Eosinophils Absolute Auto 100 /uL (0-450); Eosinophils Percent Auto 3.5 % (2-4); Hematocrit 41.2 % (41-53); Hemoglobin 14.2 g/dL (13.5-17.5); Lymphocytes Absolute Auto 900 /uL (1100-4500); Lymphocytes Percent Auto 28.7 % (25-40); Mean Corpuscular HGB Conc 34.5 % (30-36); Mean Corpuscular Hemoglobin 33.8 PG (26-34); Monocytes Absolute Auto 300 /uL (0-900); Monocytes Percent Auto 8.3 % (3-14); Neutrophils Absolute Auto 1800 /uL (1500-7000); Neutrophils Percent Auto 58.3 % (50-75); Platelet Count 132 X10^3/uL (150-400); Red Cell Distribution Width 12.9 % (11.6-14.8); White Blood Cell Count 3.2 X10^3/uL (4.5-11.0)
[2020-04-20 09:50] LABS: Aspartate Aminotransferase 26 IU/L (17-59); BUN Creatinine Ratio 36.5 (6-22); Blood Urea Nitrogen 23 mg/dL (9-20); Calcium 9.4 mg/dL (8.4-10.2); Carbon Dioxide 25 mmol/L (22-32); Chloride 106 mmol/L (98-107); Cholesterol 176 mg/dL (140-199); Estimated Glomerular Filt Rate > 60.0 mL/min (>60); Glucose 110 mg/dL (80-110); HDL Cholesterol 81 mg/dL (40-60); HEMOLYSIS < 15 (0-50); LDL Cholesterol Calculated 67 mg/dL (<100); Potassium 4.1 mmol/L (3.4-5.1); Sodium 140 mmol/L (137-145); Triglycerides 141 mg/dL (35-150)
[2020-04-20 10:17] LABS: TSH w/ Reflex to FT4 1.04 uIU/mL (0.47-4.68)
== END ==
PROVIDERS: PCP Internal Medicine; Referring Provider Internal Medicine; Visit Provider Internal Medicine
DX: E78.2 Mixed hyperlipidemia (principal); R03.0 Elevated blood-pressure reading, without diagnosis of hypertension
CPT/HCPCS: 36415; 80048; 80061; 84443; 84450; 85025

== ENCOUNTER → 2020-05-20 13:19 | Outpatient (CLI) | payer MEDICARE, SELFPAY ==
[2020-05-20 15:14] LABS: Prostate Specific Antigen < 0.064 ng/mL (0.10-4.00)
== END ==
PROVIDERS: PCP Internal Medicine; Referring Provider Radiology Radiation Oncology; Visit Provider Radiology Radiation Oncology
DX: C61 Malignant neoplasm of prostate (principal)
CPT/HCPCS: 36415; 84153

== ENCOUNTER → 2020-08-19 13:37 | Outpatient (CLI) | payer MEDICARE, SELFPAY ==
[2020-08-19] MEDS: COVID-19 VACC #1, MRNA(MOD) 100 MCG/0.5 ML VIAL IM (13:43)
== END ==
PROVIDERS: PCP Internal Medicine; Visit Provider Internal Medicine
DX: Z23 Encounter for immunization (principal)
CPT/HCPCS: 0011A; 91301

== ENCOUNTER → 2020-09-16 14:18 | Outpatient (CLI) | payer MEDICARE, SELFPAY ==
[2020-09-16] MEDS: COVID-19 VACC #2, MRNA(MOD) 100 MCG/0.5 ML VIAL IM (14:30)
== END ==
PROVIDERS: PCP Internal Medicine; Visit Provider Internal Medicine
DX: Z23 Encounter for immunization (principal)
CPT/HCPCS: 0012A; 91301

== ENCOUNTER → 2020-11-14 15:11 | Outpatient (CLI) | payer MEDICARE, SELFPAY ==
[2020-11-14 17:05] LABS: Prostate Specific Antigen < 0.064 ng/mL (0.10-4.00)
== END ==
PROVIDERS: Podiatrist; PCP Internal Medicine; Referring Provider Urology; Visit Provider Urology
DX: C61 Malignant neoplasm of prostate (principal); L60.1 Onycholysis
CPT/HCPCS: 36415; 84153

== ENCOUNTER → 2020-11-16 09:01 | Outpatient (CLI) | payer MEDICARE, SELFPAY ==
[2020-11-16 09:49] LABS: Hematocrit 40.5 % (41-53); Hemoglobin 13.9 g/dL (13.5-17.5); Mean Corpuscular HGB Conc 34.4 % (30-36); Mean Corpuscular Hemoglobin 33.5 PG (26-34); Mean Corpuscular Volume 97.2 fL (80-100); Platelet Count 134 X10^3/uL (150-400); Red Blood Cell Count 4.16 X10^6/uL (4.5-5.9); Red Cell Distribution Width 12.5 % (11.6-14.8); White Blood Cell Count 3.2 X10^3/uL (4.5-11.0)
[2020-11-16 10:18] LABS: Alanine Aminotransferase 22 IU/L (<50); Albumin 4.3 g/dL (3.5-5.0); Albumin Globulin Ratio 1.9 (1.0-2.8); Alkaline Phosphatase 64 U/L (38-126); Aspartate Aminotransferase 25 IU/L (17-59); Bilirubin Total 0.7 mg/dL (0.2-1.3); Bilirubin Unconjugated 0.7 mg/dL (0.0-1.1); Globulin 2.3 g/dL (1.7-4.1); HEMOLYSIS < 15 (0-50); Total Protein 6.6 g/dL (6.3-8.2)
== END ==
PROVIDERS: PCP Internal Medicine; Referring Provider Podiatrist; Visit Provider Podiatrist
DX: L60.1 Onycholysis (principal)
CPT/HCPCS: 36415; 80076; 85027

== ENCOUNTER → 2021-02-08 14:58 | Outpatient (CLI) | payer MEDICARE, SELFPAY ==
[2021-02-08 16:33] LABS: Add Manual Diff / Slide Review NO; Basophils Absolute Auto 100 /uL (0-100); Basophils Percent Auto 1.4 % (0-2); Eosinophils Absolute Auto 100 /uL (0-450); Hematocrit 41.3 % (41-53); Hemoglobin 14.1 g/dL (13.5-17.5); Lymphocytes Absolute Auto 1100 /uL (1100-4500); Mean Corpuscular HGB Conc 34.1 % (30-36); Mean Corpuscular Hemoglobin 33.1 PG (26-34); Monocytes Absolute Auto 400 /uL (0-900); Monocytes Percent Auto 9.6 % (3-14); Neutrophils Absolute Auto 2800 /uL (1500-7000); Platelet Count 144 X10^3/uL (150-400); Red Blood Cell Count 4.26 X10^6/uL (4.5-5.9); Red Cell Distribution Width 12.7 % (11.6-14.8); White Blood Cell Count 4.4 X10^3/uL (4.5-11.0)
== END ==
PROVIDERS: PCP Internal Medicine; Referring Provider Podiatrist; Visit Provider Podiatrist
DX: B35.1 Tinea unguium (principal); D35.1 Benign neoplasm of parathyroid gland
CPT/HCPCS: 36415; 85025

== ENCOUNTER → 2021-07-04 12:36 | Outpatient (CLI) | payer MEDICARE, SELFPAY ==
[2021-07-04 14:15] LABS: Prostate Specific Antigen Scrn < 0.064 ng/mL (0.1-4.0)
== END ==
PROVIDERS: PCP Internal Medicine; Referring Provider Specialist; Visit Provider Specialist
DX: R97.20 Elevated prostate specific antigen [PSA] (principal)
CPT/HCPCS: 36415; 84153; G0103

== ENCOUNTER → 2021-12-04 15:16 | Outpatient (CLI) | payer MEDICARE, SELFPAY ==
[2021-12-04 16:56] LABS: Prostate Specific Antigen < 0.064 ng/mL (0.10-4.00)
== END ==
PROVIDERS: PCP Internal Medicine; Referring Provider Radiology Radiation Oncology; Visit Provider Radiology Radiation Oncology
DX: Z85.46 Personal history of malignant neoplasm of prostate (principal)
CPT/HCPCS: 36415; 84153

== ENCOUNTER → 2022-03-01 09:04 | Outpatient (CLI) | payer MEDICARE, SELFPAY ==
[2022-03-01 10:15] LABS: Hematocrit 41.7 % (41-53); Hemoglobin 14.2 g/dL (13.5-17.5); Mean Corpuscular HGB Conc 34.1 % (30-36); Mean Corpuscular Hemoglobin 33.5 PG (26-34); Mean Corpuscular Volume 98.2 fL (80-100); Platelet Count 150 X10^3/uL (150-400); Red Blood Cell Count 4.25 X10^6/uL (4.5-5.9); Red Cell Distribution Width 12.8 % (11.6-14.8); White Blood Cell Count 3.5 X10^3/uL (4.5-11.0)
[2022-03-01 10:39] LABS: Alanine Aminotransferase 22 IU/L (<50); Albumin 4.6 g/dL (3.5-5.0); Albumin Globulin Ratio 1.8 (1.0-2.8); Alkaline Phosphatase 61 U/L (38-126); Aspartate Aminotransferase 24 IU/L (17-59); BUN Creatinine Ratio 24.3 (6-22); Bilirubin Total 0.6 mg/dL (0.2-1.3); Blood Urea Nitrogen 18 mg/dL (9-20); Calcium 9.4 mg/dL (8.4-10.2); Carbon Dioxide 29 mmol/L (22-32); Chloride 105 mmol/L (98-107); Cholesterol 161 mg/dL (140-199); Estimated Glomerular Filt Rate > 60 mL/min (>60); Globulin 2.5 g/dL (1.7-4.1); Glucose 95 mg/dL (80-110); HDL Cholesterol 71 mg/dL (40-60); HEMOLYSIS < 15 (0-50); LDL Cholesterol Calculated 79 mg/dL (<100); Potassium 4.4 mmol/L (3.4-5.1); Sodium 139 mmol/L (137-145); Total Protein 7.1 g/dL (6.3-8.2); Triglycerides 54 mg/dL (35-150)
[2022-03-01 11:09] LABS: Prostate Specific Antigen < 0.064 ng/mL (0.10-4.00)
[2022-03-01 11:10] LABS: TSH w/ Reflex to FT4 0.03 uIU/mL (0.47-4.68)
== END ==
PROVIDERS: PCP Internal Medicine; Referring Provider Internal Medicine; Visit Provider Internal Medicine
DX: E78.2 Mixed hyperlipidemia (principal); Z85.46 Personal history of malignant neoplasm of prostate; M15.9 Polyosteoarthritis, unspecified; N52.31 Erectile dysfunction following radical prostatectomy; Z85.820 Personal history of malignant melanoma of skin
CPT/HCPCS: 36415; 80053; 80061; 84153; 84439; 84443; 85027

== ENCOUNTER → 2022-03-05 09:16 | Outpatient (CLI) | payer MEDICARE, SELFPAY ==
[2022-03-05 11:29] LABS: COVID19 -Nasal RAPID Negative (Negative)
== END ==
PROVIDERS: PCP Internal Medicine; Visit Provider Surgery
DX: Z20.822 Contact with and (suspected) exposure to COVID-19 (principal); Z01.812 Encounter for preprocedural laboratory examination
CPT/HCPCS: 87635; C9803

== ENCOUNTER 2022-03-06 08:13 | Day surgery (SDC) | payer MEDICARE, SELFPAY ==
[2022-03-06] VITALS (13 sets, daily range): BP systolic 110–147; BP diastolic 62–81; PULSE 40–68; RESP 11–41; TEMP 36.1–36.7; O2SAT 14–98; BMI 24.7
--- NOTE | 2022-03-06 | PATH_ITS ---
[facility] Accession Number: [id number] . 01 Material submitted: . colon - ASCENDING COLON POLYP . 01 Clinical history: . COLONOSCOPY . 01 Diagnosis: Ascending Colon, Polyp, Biopsy: Tubular adenoma. [facility] 03/07/2022 1236 Local . 01 Electronically signed: . Nupur Ontiveros MD, Pathologist NPI- [id number] . 01 Gross description: . ASCENDING COLON POLYP: Received in formalin is 1 fragment(s) of gomez, soft tissue measuring 0.4 x 0.2 x 0.2 cm submitted entirely in 1 cassette(s) /JESSICA 03/07/2022 0052 Local . 01 Pathologist provided ICD-10: D12.2 . 01 CPT . 448929 Specimen Comment: A courtesy copy of this report has been sent to [phone] Performed at: 01 [facility] [address] [place] [address], [place], [place] [id number] MD Aleks Mac MD Phone: [phone]
[2022-03-06] MEDS: LACTATED RINGERS 1,000 ML 200 ML IV (08:37)
--- NOTE | 2022-03-06 08:52 | PM.HP.1 ---
History of Present Illness History of Present Illness Date Patient Seen: 03/06/22 Time Patient Seen: 08:52 Chief complaint: Colonoscopy Narrative: The patient presents for colorectal screening. Most recent colonoscopy 2019 significant for benign polyps.. No personal or family history of colon cancer. On further history denies any recent gastrointestinal symptoms. No nausea, vomiting, abdominal pain, loss of appetite, unexplained weight loss, change in bowel habits, diarrhea, constipation, melena, hematochezia, or bright red blood per rectum. Patient History Medical History Chicken pox Chronic low back pain Erectile dysfunction after radical prostatectomy Facet arthropathy, lumbar Hearing loss Herpes History of abdominal pain History of back pain History of colonic polyps History of external beam radiation therapy History of malignant neoplasm of prostate History of melanoma History of nephrolithiasis History of polymyalgia rheumatica History of prostate cancer Kidney stone (~2017) Left flank pain Lumbar radiculopathy Measles Mixed hyperlipidemia Mumps Primary osteoarthritis involving multiple joints Rheumatic fever Wears glasses Surgical History Anesthesia H/O arthroscopic knee surgery H/O hernia repair History of lumbar discectomy History of shoulder surgery (~1981) Previous back surgery (~1984) Family & Social History Family History Father Stroke Social History: household members none Tobacco & Substance use: Smoking Status Former smoker alcohol intake current alcohol intake frequency 0-2 drinks per day Substance Use Type does not use Meds Home Medications and Allergies Home Medications Medication Instructions Recorded Confirmed Type loratadine 10 mg tablet (Claritin) 10 mg PO Q DAY ##0 06/27/12 03/06/22 History simvastatin 10 mg tablet 10 mg PO QDAY ##0 06/27/12 03/06/22 History meloxicam 15 mg tablet 15 mg PO DAILY 09/02/18 03/06/22 History cholecalciferol (vitamin D3) 50 50 mcg PO DAILY 02/05/20 03/06/22 History mcg (2,000 unit) capsule docusate sodium 100 mg capsule 300 mg PO BEDTIME 07/25/21 03/06/22 History (Stool Softener) biotin 10,000 mcg capsule 10,000 mcg PO DAILY 02/28/22 03/06/22 History cyanocobalamin (vitamin B-12) 2,500 mcg PO DAILY 02/28/22 03/06/22 History 2,500 mcg tablet Allergies Allergy/AdvReac Type Severity Reaction Status Date / Time No Known Drug Allergies Allergy Unknown Verified 03/06/22 08:20 [NO KNOWN DRUG ALLERGIES] Exam Vital Signs (past 8 hours): - 03/06/22 08:25 Temperature 96.9 F L Pulse Rate 67 Respiratory Rate 16 Blood Pressure 142/81 H Pulse Oximetry 95 Oxygen Delivery Method Room Air Oxygen Flow Rate 0 Oxygen Delivery Method Room Air Oxygen Flow Rate 0 Narrative Exam Narrative: General adult male alert oriented no acute distress Chest nonlabored respirations Abdomen soft nontender nondistended Assessment & Plan Assessment & Plan narrative: The patient requires colorectal screening and colonoscopy is recommended. Technical details were discussed. Risks, benefits, alternatives explained. Risks including but not limited to myocardial infarction, aspiration, bleeding, pain, missed lesion, incomplete examination, need for further radiographic studies, colonic perforation, and need for major abdominal surgery were discussed. All questions were answered to their satisfaction, and they are in agreement with this plan. Time Spent With Patient Critical Care time: I spent a total of [] minutes of critical care time on this patient's care today; this time is exclusive of procedural time.
--- NOTE | 2022-03-06 09:20 | P.OP.COLON_ITS ---
Operative Date/Time/Diagnoses Date of procedure: 03/06/22 Time of procedure: 09:20 Pre-op diagnosis: Personal history of colonic polyps Post-op diagnosis: same Procedure & Clinicians Study performed: Colonoscopy and polypectomy Same procedure as scheduled: Yes Indications: Personal history of colonic polyps. Screening Surgeon: David Lee Procedure Notes Procedure in detail: Medications: Conscious sedation using 4mg IV midazolam and 100mcg IV of fentanyl The history and physical was performed/updated and the patient is ASA class is 2. The procedure was discussed in detail with the patient. Potential risks complications including infection, bleeding, missed diagnosis, perforation, need for surgery, and were explained. Their questions were answered and informed consent was obtained. Patient was brought to the procedure room and placed standard monitoring equipment. The patient's vital signs were monitored continuously throughout the entire procedure. Prior to starting time-out was performed. The patient was p laced in the left lateral recumbent position. Procedural sedation was administered. Examination began with a thorough inspection of the perianal area there was no evidence of fissures, fistulae, external hemorrhoids or cutaneous malignancy. The colonoscopy scope was then placed into the anal canal and was advanced to the cecum, which was identified by the ileocecal valve, the appendiceal orifice and the confluence of the taenia. The scope was then slowly withdrawn examining colon thoroughly in all directions, irrigating it of any residual stool. FINDINGS 1. Ascending colon-5 mm polyp removed with biopsy forceps 2. Internal hemorrhoids 3. Diverticulosis-mild The patient tolerated the procedure well. They will be discharged once criteria are met. The prep was of good/excellent quality. The withdrawl time was 11 minutes. The sedation time was 16 minutes. Specimen(s): other (Ascending colon) Complications: none Impression: Colonic polyp Post-procedure Recommendations: Colonoscopy in 5 years, High fiber diet and Will call with biopsy results Disposition: same day surgery
[2022-03-06] MEDS: fentaNYL 250 MCG/5 ML INJ IV (09:21)
[2022-03-06] MEDS: MIDAZOLAM 5 MG/5 ML VIAL IV (09:22)
--- NOTE | 2022-03-06 09:59 | SUR.PHASEII ---
Report from Nathan at 0940. Pt transferred to OPD. Pt complained of gas and distended abdomen. Pt turned on left side, knees bent and right knee up over right. Pt stated he felt sweaty on my back, HR brachial 40. Pt placed on telemetry, HR 42, O2 sat down to 89-91% and then pt began to pass gas. Pt placed on 2L NC. Pt denied any symptoms except sweating, BP 114/65. 0950 Pt continued to pass gas and stated he was feeling better. 1005 Pt now sitting up again, abd soft, less distended. Tolerating apple juice. HR 45 -50 and regular. Bp 125/70. Plan to continue to monitor.
--- NOTE | 2022-03-06 10:20 | SUR.PHASEII ---
Spoke with Dr Lee and updated MD regarding patient HR 40-48, episode of diaphoresis, passing gas and distended abd which decreased after passing gas. Pt currently asymptomatic with BP 114/64 MD stated pt started procedure prior to sedation in low 50's. MD ok with discharge with HR above 50.
--- NOTE | 2022-03-06 10:39 | SUR.PHASEII ---
Pt up to sit and then stand at the edge of the bed. Pt denies any symptoms, is laughing and telling stories. Getting self dressed at this time.
== END 2022-03-06 10:51 | disposition home or self-care (01) ==
PROVIDERS: PCP Internal Medicine; Referring Provider Surgery; Visit Provider Surgery
PROC: 0DJD8ZZ Inspection of Lower Intestinal Tract, Via Natural or Artificial Opening Endoscopic (ICD-10-PCS; CPT 45378; principal; 2022-03-06 09:15)
DX: Z12.11 Encounter for screening for malignant neoplasm of colon (principal); Z86.010 Personal history of colon polyps; K57.30 Diverticulosis of large intestine without perforation or abscess without bleeding; K64.8 Other hemorrhoids; D12.2 Benign neoplasm of ascending colon
CPT/HCPCS: 45380; 99152; J2250; J3010

== ENCOUNTER → 2022-05-31 13:20 | Outpatient (CLI) | payer MEDICARE, SELFPAY ==
[2022-05-31 14:51] LABS: Prostate Specific Antigen < 0.064 ng/mL (0.10-4.00)
== END ==
PROVIDERS: PCP Internal Medicine; Referring Provider Specialist; Visit Provider Specialist
DX: C61 Malignant neoplasm of prostate (principal)
CPT/HCPCS: 36415; 84153

== ENCOUNTER → 2022-10-05 08:39 | Outpatient (CLI) | payer MEDICARE, SELFPAY ==
--- NOTE | 2022-10-05 08:40 | DI.RAD.S_ITS ---
PROCEDURE: XR KNEE RT 3V INDICATIONS: KNEE PAIN TECHNIQUE: 3 views of the knee were acquired. COMPARISON: None. FINDINGS: Moderate tricompartmental joint space narrowing with marginal osteophytosis, most pronounced in the patellofemoral compartment and in the medial femorotibial compartment where there is associated subchondral cystic change and sclerosis. Lateral patellar subluxation and tilt present. No acute finding. No suspicious bone lesion. Small joint effusion. IMPRESSION: Moderate tricompartmental osteoarthritis with associated lateral patellar subluxation and tilt along with small joint effusion. Dictated by: Shawn Warren M.D. on 10/05/2022 at 14:50 Approved by: Shawn Warren M.D. on 10/05/2022 at 14:51
--- NOTE | 2022-10-05 08:40 | DI.RAD.S_ITS ---
PROCEDURE: XR KNEE LT 3V INDICATIONS: KNEE PAIN TECHNIQUE: 3 views of the knee were acquired. COMPARISON: 11/08/2020 and 10/05/2022 FINDINGS: Tricompartmental joint space narrowing most pronounced in the medial femorotibial compartment and in the patellofemoral compartment. Lateral patellar subluxation and tilt. No suspicious bone lesion or acute finding. No knee joint effusion. IMPRESSION: Moderate tricompartmental degenerative change with associated lateral patellar subluxation and tilt. Findings similar to 10/05/2022 exam and 11/08/2020 exam. Dictated by: Shawn Warren M.D. on 10/05/2022 at 14:49 Approved by: Shawn Warren M.D. on 10/05/2022 at 14:50
== END ==
PROVIDERS: PCP Internal Medicine; Referring Provider Anesthesiology; Visit Provider Anesthesiology
DX: M17.11 Unilateral primary osteoarthritis, right knee (principal); S83.012D Lateral subluxation of left patella, subsequent encounter; S83.011D Lateral subluxation of right patella, subsequent encounter; M25.461 Effusion, right knee; M25.561 Pain in right knee; M25.562 Pain in left knee
CPT/HCPCS: 73562

== ENCOUNTER → 2022-11-13 11:16 | Outpatient (CLI) | payer MEDICARE, SELFPAY ==
--- NOTE | 2022-11-13 11:17 | DI.RAD.S_ITS ---
PROCEDURE: XR LUMBAR SPINE MIN 4V INDICATIONS: Chronic Low back pain TECHNIQUE: 5 views of the lumbar spine were acquired, including bilateral oblique views. COMPARISON: [facility], , XR LUMBAR SPINE MIN 4V, 03/15/2020, 11:31. FINDINGS: Bones: 5 nonrib-bearing vertebrae are present. There is normal bony alignment. No vertebral body compression fractures. No suspicious bony lesions. Diffuse disc space narrowing and sclerotic facet joints noted particularly in the lower lumbar spine. Soft tissues: Overlying bowel gas pattern is normal. No suspicious soft tissue calcifications. Oblique images: No pars defects. IMPRESSION: Degenerative disc disease and arthropathy particularly in the lower lumbar spine Approved by: Bernard Pineda M.D. on 11/13/2022 at 17:53
== END ==
PROVIDERS: PCP Internal Medicine; Referring Provider Anesthesiology; Visit Provider Anesthesiology
DX: M51.16 Intervertebral disc disorders with radiculopathy, lumbar region (principal); M47.26 Other spondylosis with radiculopathy, lumbar region; M54.50 Low back pain, unspecified; M17.0 Bilateral primary osteoarthritis of knee; R29.818 Other symptoms and signs involving the nervous system; G89.29 Other chronic pain
CPT/HCPCS: 20611; 72110; 99214; J7318

== ENCOUNTER → 2022-11-17 12:19 | Outpatient (CLI) | payer MEDICARE, SELFPAY ==
--- NOTE | 2022-11-17 12:21 | DI.MRI.S_ITS ---
PROCEDURE: MR LUMBAR SPINE WO CON INDICATIONS: Lumbar radiculopathy, neurogenic claudication TECHNIQUE: Noncontrast sagittal T1 spin echo and T2 fast echo, sagittal STIR, and T2 fast spin echo through the lumbar spine. In cases with scoliosis, additional coronal T2 fast spin echo may be performed. COMPARISON: [facility], MR, MR LUMBAR SPINE WO CON, 03/11/2020, 8:26. FINDINGS: Image quality: Excellent. Alignment and Curvature: There is trace retrolisthesis of L2 on L3 goal through 4. Bone Marrow: Marrow is of normal overall signal. Mild reactive endplate changes are present L3-4, minimal L4-5. Schmorl's nodes are noted along the inferior endplate of L2, L3 as well as superior endplate of L3. No acute vertebral body compression fractures. Spinal Cord: Conus medullaris terminates at the L2 level. Visualized cord demonstrates normal signal and size. Paraspinous Soft Tissues: No paravertebral masses. Discs: Moderate to severe disc desiccation is present throughout the lumbar spine. T12-L1: Right posterior paracentral protrusion with effacement of the anterior thecal sac. This is new compared to prior exam. No foraminal narrowing. L1-L2: Disc bulge or spinal stenosis. Pzpi-cw-[id number] right foraminal narrowing with facet and ligamentum flavum hypertrophy. No significant interval change. L2-L3: Mild disc bulge with mild spinal stenosis. Moderate bilateral foraminal narrowing with facet and ligamentum flavum hypertrophy, minimally progressive on the right compared to prior exam. L3-L4: Mild disc bulge with mild spinal stenosis. There is partial effacement of the lateral recesses bilaterally. Moderate bilateral foraminal narrowing with facet and ligamentum flavum hypertrophy, minimally progressive compared to prior exam. L4-L5: Mild disc bulge without spinal stenosis. Mild left and [id number]-vh-[id number] right foraminal narrowing with facet and ligamentum flavum hypertrophy. L5-S1: Mild disc bulge without spinal stenosis. Moderate to severe bilateral foraminal narrowing more severe on the right with facet and ligamentum flavum hypertrophy. No interval change. IMPRESSION: Multilevel foraminal narrowing secondary to facet/ligamentum flavum arthropathy. New posterior right paracentral protrusion at T12-L1 with effacement of the anterior thecal sac. Dictated by: Tatum Michaels M.D. on 11/19/2022 at 14:08 Approved by: Tatum Michaels M.D. on 11/19/2022 at 14:15
== END ==
PROVIDERS: PCP Internal Medicine; Referring Provider Anesthesiology; Visit Provider Anesthesiology
DX: M47.26 Other spondylosis with radiculopathy, lumbar region (principal); M47.27 Other spondylosis with radiculopathy, lumbosacral region; M51.15 Intervertebral disc disorders with radiculopathy, thoracolumbar region; M48.062 Spinal stenosis, lumbar region with neurogenic claudication; M48.07 Spinal stenosis, lumbosacral region; R29.818 Other symptoms and signs involving the nervous system; M54.50 Low back pain, unspecified; G89.29 Other chronic pain
CPT/HCPCS: 72148

== ENCOUNTER → 2022-11-28 11:18 | Outpatient (CLI) | payer MEDICARE, SELFPAY ==
[2022-11-28 12:40] LABS: Hematocrit 41.9 % (41-53); Hemoglobin 14.5 g/dL (13.5-17.5); Mean Corpuscular HGB Conc 34.6 % (30-36); Mean Corpuscular Hemoglobin 33.2 PG (26-34); Platelet Count 152 X10^3/uL (150-400); Red Blood Cell Count 4.36 X10^6/uL (4.5-5.9); Red Cell Distribution Width 12.6 % (11.6-14.8); White Blood Cell Count 4.1 X10^3/uL (4.5-11.0)
[2022-11-28 13:17] LABS: Alanine Aminotransferase 26 IU/L (<50); Albumin 4.6 g/dL (3.5-5.0); Albumin Globulin Ratio 1.8 (1.0-2.8); Alkaline Phosphatase 85 U/L (38-126); Aspartate Aminotransferase 25 IU/L (17-59); BUN Creatinine Ratio 23.2 (6-22); Bilirubin Total 0.7 mg/dL (0.2-1.3); Blood Urea Nitrogen 16 mg/dL (9-20); Calcium 9.4 mg/dL (8.4-10.2); Carbon Dioxide 30 mmol/L (22-32); Chloride 102 mmol/L (98-107); Estimated Glomerular Filt Rate > 60 mL/min (>60); Globulin 2.5 g/dL (1.7-4.1); Glucose 92 mg/dL (80-110); HEMOLYSIS < 15 (0-50); Potassium 4.1 mmol/L (3.4-5.1); Sodium 139 mmol/L (137-145); Total Protein 7.1 g/dL (6.3-8.2)
[2022-11-28 13:37] LABS: TSH w/ Reflex to FT4 0.89 uIU/mL (0.47-4.68)
== END ==
PROVIDERS: PCP Internal Medicine; Referring Provider Internal Medicine; Visit Provider Internal Medicine
DX: I48.91 Unspecified atrial fibrillation (principal); I48.92 Unspecified atrial flutter; R00.2 Palpitations
CPT/HCPCS: 36415; 80053; 84443; 85027

== ENCOUNTER 2022-12-05 07:51 | Outpatient (CLI) | payer MEDICARE, SELFPAY ==
--- NOTE | 2022-12-05 07:52 | DI.RAD.S_ITS ---
PROCEDURE: PAIN L/S TRANSFORAMINAL INJECT INDICATIONS: RADICULOPATHY COMPARISON: None. FINDINGS: Fluoroscopic spot filming was performed to verify placement of spinal needles at the lower lumbar level(s), as labeled on the films. Appropriate location(s) of the needle tip(s) was confirmed by injection of iodinated contrast. IMPRESSION: Needle placement as above Dictated by: Mayi Pappas M.D. on 12/05/2022 at 10:48 Transcribed by: JULIÁN on 12/05/2022 at 10:49 Approved by: Mayi Pappas M.D. on 12/05/2022 at 16:08
[2022-12-05 07:55] VITALS: BP 140/72; PULSE 56; RESP 18; TEMP 36.5; O2SAT 99
[2022-12-05 08:36] VITALS: BP 170/81; PULSE 59; RESP 12; O2SAT 95
[2022-12-05] MEDS: IOPAMIDOL 15 ML VIAL 3 ML INJ (08:39)
[2022-12-05] MEDS: DEXAMETHASONE 10 MG/ML VIAL 20 MG INJ (08:39)
[2022-12-05 08:41] VITALS: BP 155/69; PULSE 53; RESP 11; O2SAT 95
[2022-12-05 08:46] VITALS: BP 151/77; PULSE 54; RESP 16; O2SAT 95
[2022-12-05 08:55] VITALS: BP 157/67; PULSE 50; RESP 18; O2SAT 97
--- NOTE | 2022-12-05 13:08 | P.PCN_ITS ---
Date/Time/Diagnoses Date of procedure: 12/05/22 Time of procedure: 08:30 Procedure Notes Physician: Demetrio Costa Total Fluoroscopy time (seconds): 33 Total sedation minutes: 0 Procedure in detail & Post-procedure care: Left L4-5 and L5-S1 Transforaminal Epidural Steroid Injection Indications: Roberto is presenting for treatment of lumbar radiculopathy with low back and leg pain. Preoperative diagnosis: Left lumbar radiculopathy Postoperative diagnosis: Same Focused Examination: Ax3 Mood and affect are normal Vital Signs: VSS Consent: Following review of allergies and potential side effects/complications, including, but not necessarily limited to, infection, allergic reaction, local tissue breakdown, stroke, temporary or permanent nerve injury, paralysis, and possible , the patient indicated that they understood and agreed to proceed.? An informed consent document was signed by the patient, witnessed by a nurse and placed in the patient's chart.? Additionally, other treatment options including medications and physical therapy were reviewed with the patient. All questions were answered. Site was then marked. Anesthesia: Local Position: Prone Monitoring: NIBP, Pulse oximetry, 3 lead EKG Needle used: 22G 3.5 inch spinal needle Contrast: Isovue 300M Injectate: 10 mg Dexamethasone mixed with 1% lidocaine 1 ml and Normal Saline 1 ml per site Technique: The skin was prepped with chloraprep and draped in a sterile fashion. Time out was performed as per protocol. Oxygen applied via NC. Skin and subcutaneous structures of the needle entry site were infiltrated with 3mL of lidocaine 1%. Under fluoroscopic guidance, using an ipsilateral oblique view,?a 22 gauge 3.5 inch needle was advanced to the base of the L4?pedicle.? The needle was advanced to the superio-posterior aspect of the neural foramen under lateral view.? Oblique and AP views were rechecked. No paresthesias noted by the patient during needle placement. In AP view and utilizing real-time digital subtraction fluoroscopy, 2 ml contrast was slowly injected. Epidural spread was observed without evidence for intravascular nor intrathecal uptake. Contrast spread was seen craniocaudally. The above injectate was then administered, and the needle was subsequently withdrawn. Band-Aids applied to injection sites. Skin and subcutaneous structures of the needle entry site were infiltrated with 3mL of lidocaine 1%. Under fluoroscopic guidance, using an ipsilateral oblique view,?a 22 gauge 3.5 inch needle was advanced to the base of the L5?pedicle.? The needle was advanced to the superio-posterior aspect of the neural foramen under lateral view.? Oblique and AP views were rechecked. No paresthesias noted by the patient during needle placement. In AP view and utilizing real-time digital subtraction fluoroscopy, 2 ml contrast was slowly injected. Epidural spread was observed without evidence for intravascular nor intrathecal uptake. Contrast spread was seen craniocaudally. The above injectate was then administered, and the needle was subsequently withdrawn. Band-Aids applied to injection sites. EBL: less than 1 ml Complications: None Post Procedure: Patient was taken to the recovery and monitored. The patient was provided a Pain Log to continue to record the patient's response to the target- specific procedure prior to the patient's follow-up visit with the referring physician. Patient was stable upon discharge. Detailed post procedure instructions were provided. Patient was asked to call in the event of worsening pain, fever, weakness, numbness or bladder or bowel incontinence.
== END 2022-12-05 09:09 | disposition home or self-care (01) ==
PROVIDERS: PCP Internal Medicine; Referring Provider Anesthesiology; Visit Provider Anesthesiology
DX: M54.16 Radiculopathy, lumbar region (principal)
CPT/HCPCS: 64483; 64484; J1100

== ENCOUNTER → 2022-12-13 06:47 | Outpatient (CLI) | payer MEDICARE, SELFPAY ==
--- NOTE | 2022-12-13 06:49 | DI.ECHO.S_ITS ---
[facility] +---------+ : : [address] : : : : [id number] : : : : Phone: [phone]---------+ Echocardiogram Report + + :Name: OSIRIS NOLEN Study Date: 12/13/2022 Height: 70 in : :[facility] ReadingLocation: Weight: 176 lb : : Gender: Male BSA: 2.0 m2 : :: 1940 Age: 82 yrs BP: 122/60 mmHg: :Reason For Study: PALPITATIONS : :Ordering Physician: WEI, : :GIOVANI Performed By: Dodie Saez : :Referring: GIOVANI CARVAJAL : + + Interpretation Summary The ejection fraction is estimated to be 60-65%. Diastolic parameters suggest probable normal left ventricular diastolic function and normal filling pressures. The right ventricle is normal in size and function. The right ventricular systolic pressure is estimated to be at least 28 mmHg based on an estimated right atrial pressure of 3 mm Hg. The left atrium is mildly dilated. No significant valvular abnormality. No significant change from last study in 08/2018 Procedure: A two-dimensional transthoracic echocardiogram with color flow and Doppler was performed. The study quality was technically adequate. There is no prior echocardiogram noted for this patient. The patient was in sinus bradycardia with heart rates between 42-53 bpm during the exam. Left Ventricle: The left ventricle is normal in size and wall thickness. The ejection fraction is estimated to be 60-65%. There are no obvious focal wall motion abnormalities noted but poor endocardial definition reduces the sensitivity for the detection of such. Diastolic parameters suggest probable normal left ventricular diastolic function and normal filling pressures. Right Ventricle: The right ventricle is normal in size and function. Atria: The left atrium is mildly dilated. Right atrial size is normal. There is no Doppler evidence for an interatrial shunt. Mitral Valve: The mitral valve is normal in structure and function. There is trace mitral regurgitation. Aortic Valve: The aortic valve is trileaflet. The aortic valve opens well. There is no aortic valve stenosis. There is trace aortic regurgitation. Tricuspid Valve: The tricuspid valve is normal in structure and function. There is mild tricuspid regurgitation. The right ventricular systolic pressure is estimated to be at least 28 mmHg based on an estimated right atrial pressure of 3 mm Hg. Pulmonic Valve: The pulmonic valve is not well seen, but is grossly normal. There is no pulmonic valvular regurgitation. Great Vessels: The aortic root is normal size. The dimensions of the ascending aorta are normal. The IVC is of normal diameter and collapses greater than 50% with a sniff. This suggests a low right atrial pressure of 3 mm Hg. Pericardium/ Pleura There is no pericardial effusion. There is no pleural effusion. MMode/2D Measurements & Calculations LVIDd: 5.5 cm LVOT diam: 2.4 cm LVIDs: 3.8 cm Ao root diam: 3.3 cm FS: 31.2 % asc Aorta Diam: 3.6 cm EPSS: 0.44 cm Ao Arch Diam (Prox Trans): 2.8 cm IVSd: 0.89 cm LVPWd: 0.78 cm LV boss. diameter/BSA (cm/m^2): 2.8 LV sys. diameter/BSA (cm/m^2): 1.9 LA A2 area: 23.9 cm2 RA long axis: 6.2 cm LA A4 area: 21.8 cm2 RA area: 19.9 cm2 LA length (vol): 6.2 cm RA vol: 54.3 ml LA vol: 71.7 ml RA : 27.5 ml/m2 LA vol index: 36.3 ml/m2 IVC diam: 1.6 cm RVD1 (basal): 3.8 cm RVD2 (mid): 2.7 cm TAPSE: 2.1 cm Doppler Measurements & Calculations Ao V2 max: 176.8 cm/sec LVOT Max Tong: 136.5 cm/sec Ao V2 mean: 116.6 cm/sec LV V1 max P.4 mmHg Ao max P.5 mmHg LV V1 VTI: 28.7 cm Ao mean P.0 mmHg DERRICK(I,D): 3.3 cm2 Ao V2 VTI: 38.2 cm DERRICK(V,D): 3.4 cm2 sev ratio: 0.75 DERRICK indexed to BSA (cm^2/m^2): 1.7 MV E max tong: 83.6 cm/sec TR max tong: 251.5 cm/sec MV A max tong: 56.6 cm/sec TR max P.3 mmHg MV E/A: 1.5 PA V2 max: 126.3 cm/sec Med Peak E' Tong: 8.4 cm/sec PA V2 mean: 87.6 cm/sec E/E' med: 9.9 PA mean P.4 mmHg Lat Peak E' Tong: 10.7 cm/sec PA pr(Accel): 43.0 mmHg E/E' lat: 7.8 E/e' average: 8.9 MV dec time: 0.30 sec SV(LVOT): 125.4 ml Reading Physician:MEREDITH
== END ==
PROVIDERS: PCP Internal Medicine; Referring Provider Internal Medicine; Visit Provider Internal Medicine
DX: I07.1 Rheumatic tricuspid insufficiency (principal); I48.91 Unspecified atrial fibrillation; I48.92 Unspecified atrial flutter; R00.2 Palpitations
CPT/HCPCS: 93246; 93306

== ENCOUNTER → 2022-12-13 09:41 | Outpatient (CLI) | payer MEDICARE, SELFPAY ==
--- NOTE | 2023-01-04 13:08 | CR.UO ---
Addendum entered by Melinda Merchant 01/04/23 13:21: Dr. Molina's office confirmed receipt of report Original Note: Zio Report- critical event notification Symptomatic bradycardia on Zio monitor w/ HR as low as 33bpm. Referring MD informed and unconfirmed report rightfaxed to office.
== END ==
PROVIDERS: PCP Internal Medicine; Referring Provider Internal Medicine; Visit Provider Internal Medicine
DX: I48.91 Unspecified atrial fibrillation (principal); I48.92 Unspecified atrial flutter; R00.2 Palpitations
CPT/HCPCS: 93246

== ENCOUNTER 2023-01-16 07:44 | Outpatient (CLI) | payer MEDICARE, SELFPAY ==
--- NOTE | 2023-01-16 07:46 | DI.RAD.S_ITS ---
PROCEDURE: PAIN L/S TRANSFORAMINAL INJECT INDICATIONS: LUMBAR RADICULOPATHY COMPARISON: [facility], , PAIN L/S TRANSFORAMINAL INJECT, 12/05/2022, 8:35. FINDINGS: Fluoroscopic spot filming was performed to verify placement of spinal needles at the left S1 level(s), as labeled on the films. Appropriate location(s) of the needle tip(s) was confirmed by injection of iodinated contrast. IMPRESSION: 1st optic image demonstrates needle placement in the left S1 foramina. Dictated by: Madhu Carlson M.D. on 01/16/2023 at 12:53 Approved by: Madhu Carlson M.D. on 01/16/2023 at 12:53
[2023-01-16 07:55] VITALS: BP 138/69; PULSE 54; RESP 18; O2SAT 97
[2023-01-16 08:16] VITALS: BP 145/67; PULSE 54; RESP 14; O2SAT 95
[2023-01-16] MEDS: IOPAMIDOL 15 ML VIAL 3 ML INJ (08:20)
[2023-01-16] MEDS: DEXAMETHASONE 10 MG/ML VIAL INJ (08:20)
[2023-01-16 08:21] VITALS: BP 139/69; PULSE 61; RESP 12; O2SAT 94
[2023-01-16 08:23] VITALS: BP 154/66; PULSE 58; RESP 16; O2SAT 96
--- NOTE | 2023-01-16 08:26 | P.PCN_ITS ---
Date/Time/Diagnoses Date of procedure: 01/16/23 Time of procedure: 08:00 Procedure Notes Physician: Demetrio Costa Total Fluoroscopy time (seconds): 15 Total sedation minutes: 0 Procedure in detail & Post-procedure care: Left S1 Transforaminal Epidural Steroid Injection Indications: Roberto is presenting for treatment of lumbosacral radiculopathy with low back and leg pain. Preoperative diagnosis: Bilateral lumbosacral radiculopathy Postoperative diagnosis: Same Focused Examination: Ax3 Mood and affect are normal Vital Signs: VSS ASA: 2 Consent: Following review of allergies and potential side effects/complications, including, but not necessarily limited to, infection, allergic reaction, local tissue breakdown, stroke, temporary or permanent nerve injury, paralysis, and possible , the patient indicated that they understood and agreed to proceed.? An informed consent document was signed by the patient, witnessed by a nurse and placed in the patient's chart.? Additionally, other treatment options including medications and physical therapy were reviewed with the patient. All questions were answered. Site was then marked. Anesthesia: Local Position: Prone Monitoring: NIBP, Pulse oximetry, 3 lead EKG Needle used: 22G, 3.5 inch spinal needle Contrast: Isovue 300M Injectate: 10 mg Dexamethasone mixed with 1% lidocaine 1 ml and Normal Saline 1 ml per site Technique: The skin was prepped with chloraprep and draped in a sterile fashion. Time out was performed as per protocol. Oxygen applied via NC. Skin and subcutaneous structures of the needle entry site were infiltrated with 3mL of lidocaine 1%. Under fluoroscopic guidance, using an ipsilateral oblique view,?a 22 gauge 3.5 inch needle was advanced to the superolateral border of the left S1 foramen.? The needle was advanced to the superolateral aspect of the neural foramen under lateral view.?AP views were rechecked. No paresthesias noted by the patient during needle placement. In AP view and utilizing real-time digital subtraction fluoroscopy, 2 ml contrast was slowly injected. Epidural spread was observed without evidence for intravascular nor intrathecal uptake. The above injectate was then administered, and the needle was subsequently withdrawn. Ban d-Aid applied to injection sites. EBL: less than 1 ml Complications: None Post Procedure: Patient was taken to the recovery and monitored. The patient was provided a Pain Log to continue to record the patient's response to the target- specific procedure prior to the patient's follow-up visit with the referring physician. Patient was stable upon discharge. Detailed post procedure instructions were provided. Patient was asked to call in the event of worsening pain, fever, weakness, numbness or bladder or bowel incontinence.
== END 2023-01-16 08:31 | disposition home or self-care (01) ==
LOC: RAD 07:45
PROVIDERS: PCP Internal Medicine; Referring Provider Anesthesiology; Visit Provider Anesthesiology
DX: M54.17 Radiculopathy, lumbosacral region (principal)
CPT/HCPCS: 64483; J1100

== ENCOUNTER → 2023-03-14 13:08 | Outpatient (CLI) | payer MEDICARE, SELFPAY ==
[2023-03-14 14:35] LABS: Add Manual Diff / Slide Review NO; Basophils Absolute Auto 0 /uL (0-100); Basophils Percent Auto 1.1 % (0-2); Eosinophils Absolute Auto 100 /uL (0-450); Eosinophils Percent Auto 2.2 % (2-4); Hematocrit 41.1 % (41-53); Hemoglobin 14.4 g/dL (13.5-17.5); Lymphocytes Absolute Auto 1200 /uL (1100-4500); Lymphocytes Percent Auto 28.3 % (25-40); Mean Corpuscular HGB Conc 35.2 % (30-36); Mean Corpuscular Hemoglobin 33.6 PG (26-34); Mean Corpuscular Volume 95.6 fL (80-100); Monocytes Absolute Auto 400 /uL (0-900); Monocytes Percent Auto 9.6 % (3-14); Neutrophils Absolute Auto 2500 /uL (1500-7000); Neutrophils Percent Auto 58.8 % (50-75); Platelet Count 168 X10^3/uL (150-400); Red Cell Distribution Width 12.6 % (11.6-14.8); White Blood Cell Count 4.2 X10^3/uL (4.5-11.0)
[2023-03-14 14:50] LABS: Alanine Aminotransferase 23 IU/L (<50); Albumin 4.7 g/dL (3.5-5.0); Alkaline Phosphatase 75 U/L (38-126); Aspartate Aminotransferase 24 IU/L (17-59); Bilirubin Total 0.5 mg/dL (0.2-1.3); Bilirubin Unconjugated 0.3 mg/dL (0.0-1.1); Globulin 2.4 g/dL (1.7-4.1); HEMOLYSIS < 15 (0-50); Total Protein 7.1 g/dL (6.3-8.2)
[2023-03-14 15:22] LABS: Prostate Specific Antigen < 0.064 ng/mL (0.10-4.00)
== END ==
PROVIDERS: PCP Internal Medicine; Referring Provider Podiatrist; Visit Provider Podiatrist
DX: Z85.46 Personal history of malignant neoplasm of prostate (principal); B35.1 Tinea unguium
CPT/HCPCS: 36415; 80076; 84153; 85025

== ENCOUNTER → 2023-04-11 09:14 | Outpatient (CLI) | payer MEDICARE, SELFPAY | PROVIDERS: Absent Provider Internal Medicine; Family Provider Internal Medicine; PCP Internal Medicine; Referring Provider Anesthesiology; Visit Provider Anesthesiology | DX: M54.16 Radiculopathy, lumbar region (principal) | CPT/HCPCS: 95886; 95909 ==

== ENCOUNTER → 2023-07-03 13:57 | Outpatient (CLI) | payer MEDICARE, SELFPAY ==
[2023-07-03 16:34] LABS: Prostate Specific Antigen < 0.064 ng/mL (0.10-4.00)
[2023-07-09 05:25] LABS: Testosterone Fr+Wkly bound 15.6 ng/dL (40.0-250.0); Testosterone, Total 129.8 ng/dL (264.0-916.0)
== END ==
PROVIDERS: Family Provider Internal Medicine; PCP Internal Medicine; Referring Provider Specialist; Visit Provider Specialist
DX: Z85.46 Personal history of malignant neoplasm of prostate (principal); N52.31 Erectile dysfunction following radical prostatectomy
CPT/HCPCS: 36415; 84153; 84403

== ENCOUNTER → 2023-07-18 13:37 | Outpatient (CLI) | payer MEDICARE, SELFPAY ==
--- NOTE | 2023-07-18 14:15 | DI.RAD.S_ITS ---
PROCEDURE: XR CHEST 2V INDICATIONS: cough x 3 weeks TECHNIQUE: 2 views of the chest were acquired. COMPARISON: [facility], CHEST 1 VIEW, 04/12/2009, 13:19. [facility], CHEST 2 VIEW, 07/28/2008, 11:50. FINDINGS: Surgical changes and devices: None. Lungs and pleura: Lungs are clear. No pleural effusions or pneumothorax. Mediastinum: Mediastinal contours are normal. Heart size is normal. Bones and chest wall: No suspicious bony abnormalities. Soft tissues appear unremarkable. IMPRESSION: No acute cardiopulmonary abnormality is seen. Dictated by: South Hassan M.D. on 07/18/2023 at 14:59 Approved by: South Hassan M.D. on 07/18/2023 at 14:59
[2023-07-18 14:40] LABS: Influenza A - CEPHEID Flu A NEGATIVE (NEGATIVE); Influenza B - CEPHEID Flu B NEGATIVE (NEGATIVE); Respiratory Syncytial Virus Negative (Negative)
[2023-07-18 15:02] LABS: COVID-19 CEPHEID 4-PLEX PCR POSITIVE (Negative)
== END ==
PROVIDERS: Family Provider Internal Medicine; PCP Internal Medicine; Referring Provider Student in an Organized Health Care Education/Training Program; Visit Provider Student in an Organized Health Care Education/Training Program
DX: R05.1 Acute cough (principal)
CPT/HCPCS: 0241U; 71046

== ENCOUNTER → 2023-08-05 06:50 | Outpatient (CLI) | payer MEDICARE, SELFPAY ==
[2023-08-14 09:52] LABS: Percent Free Testosterone 1.49 % (1.50-4.20); Testosterone Free 3.65 ng/dL (5.00-21.00); Testosterone Total 245.1 ng/dL (264.0-916.0)
== END ==
PROVIDERS: Family Provider Internal Medicine; PCP Internal Medicine; Referring Provider Specialist; Visit Provider Specialist
DX: E29.1 Testicular hypofunction (principal); N52.31 Erectile dysfunction following radical prostatectomy
CPT/HCPCS: 36415; 84402; 84403

== ENCOUNTER → 2023-10-30 09:29 | Outpatient (CLI) | payer MEDICARE, SELFPAY ==
[2023-10-31 10:01] LABS: Fecal Immunochemical Test Negative (Negative)
== END ==
PROVIDERS: Family Provider Internal Medicine; PCP Internal Medicine; Referring Provider Internal Medicine; Visit Provider Internal Medicine
DX: Z12.11 Encounter for screening for malignant neoplasm of colon (principal)
CPT/HCPCS: 82274

== ENCOUNTER → 2023-11-11 13:47 | Outpatient (CLI) | payer MEDICARE, SELFPAY ==
[2023-11-11 14:51] LABS: Add Manual Diff / Slide Review NO; Basophils Absolute Auto 0 /uL (0-100); Basophils Percent Auto 0.7 % (0-2); Eosinophils Absolute Auto 100 /uL (0-450); Eosinophils Percent Auto 1.5 % (2-4); Hematocrit 40.4 % (41-53); Hemoglobin 13.8 g/dL (13.5-17.5); Lymphocytes Absolute Auto 800 /uL (1100-4500); Lymphocytes Percent Auto 17.5 % (25-40); Mean Corpuscular Hemoglobin 33.4 PG (26-34); Monocytes Absolute Auto 400 /uL (0-900); Monocytes Percent Auto 9.4 % (3-14); Neutrophils Absolute Auto 3200 /uL (1500-7000); Neutrophils Percent Auto 70.9 % (50-75); Platelet Count 137 X10^3/uL (150-400); Red Blood Cell Count 4.12 X10^6/uL (4.5-5.9); Red Cell Distribution Width 12.5 % (11.6-14.8); White Blood Cell Count 4.6 X10^3/uL (4.5-11.0)
[2023-11-11 15:48] LABS: Prostate Specific Antigen < 0.064 ng/mL (0.10-4.00)
[2023-11-11 15:49] LABS: Testosterone 159 ng/dL (71.8-623)
== END ==
PROVIDERS: Family Provider Internal Medicine; PCP Internal Medicine; Referring Provider Specialist; Visit Provider Specialist
DX: E29.1 Testicular hypofunction (principal); Z85.46 Personal history of malignant neoplasm of prostate
CPT/HCPCS: 36415; 84153; 84403; 85025

== ENCOUNTER → 2023-12-12 16:39 | Outpatient (CLI) | payer MEDICARE, SELFPAY ==
[2023-12-13 14:20] LABS: Testosterone 337 ng/dL (71.8-623)
== END ==
PROVIDERS: Family Provider Internal Medicine; PCP Internal Medicine; Referring Provider Specialist; Visit Provider Specialist
DX: E29.1 Testicular hypofunction (principal)
CPT/HCPCS: 36415; 84403

== ENCOUNTER → 2024-01-31 13:51 | Outpatient (CLI) | payer MEDICARE, SELFPAY ==
[2024-01-31 15:53] LABS: Testosterone 351 ng/dL (71.8-623)
== END ==
PROVIDERS: Family Provider Internal Medicine; PCP Internal Medicine; Referring Provider Specialist; Visit Provider Specialist
DX: E29.1 Testicular hypofunction (principal)
CPT/HCPCS: 36415; 84403

== ENCOUNTER 2024-06-04 13:13 | Outpatient (CLI) | payer MEDICARE, SELFPAY ==
[2024-06-04] VITALS (8 sets, daily range): BP systolic 126–145; BP diastolic 63–78; PULSE 61–75; RESP 14–19; TEMP 36.8; O2SAT 96–98
--- NOTE | 2024-06-04 13:14 | DI.RAD.S_ITS ---
PROCEDURE: PAIN L INTERLAMINAR/CAUDAL INJ INDICATIONS: Para Right L5/S1 TL VILLA COMPARISON: None. FINDINGS: Fluoroscopic spot filming was performed to verify placement of spinal needles at the L5-S1 level(s), as labeled on the films. Appropriate location(s) of the needle tip(s) was confirmed by injection of iodinated contrast. IMPRESSION: Contrast a needle placement overlying L5-S1. Dictated by: Tatum Michaels M.D. on 06/04/2024 at 21:05 Approved by: Tatum Michaels M.D. on 06/04/2024 at 21:05
[2024-06-04] MEDS: MIDAZOLAM 2 MG/2 ML VIAL 1 MG IV (14:29)
[2024-06-04] MEDS: DEXAMETHASONE 10 MG/ML VIAL INJ (14:33)
[2024-06-04] MEDS: BUPIVACAINE 0.25% (PF) VIAL 2 ML INJ (14:33)
[2024-06-04] MEDS: iopamidoL 15 ML VIAL 3 ML INJ (14:34)
[2024-06-04] MEDS: BETAMETHASONE 30 MG/5 ML MDV 12 MG INJ (14:34)
--- NOTE | 2024-06-04 14:44 | P.PCN_ITS ---
Date/Time/Diagnoses Date of procedure: 07/01/24 Time of procedure: 14:45 Pre-procedure diagnosis: 1. HNP WITH RADICULAR FEATURES, 2. MULTILEVEL CENTRAL STENOSIS, Post-procedure diagnosis: same Procedure Notes Procedure: 1. FLUOROSCOPICALLY GUIDED CONTRAST CONTROLLED INTERLAMINAR EPIDURAL STEROID INJECTION - L5/S1 Indications: Roberto is referred by Dr. Molina for treatment of Bilateral Foraminal Stenosis L>R LE symptoms. Physician: Pato Rubalcava Total Fluoroscopy time (seconds): 11 Total sedation minutes: 11 Complications: none Procedure in detail & Post-procedure care: FINDINGS Multilevel Central Spinal Stenosis with Nerve Root Compression DESCRIPTION OF PROCEDURE Fluoroscopically guided, contrast-controlled L5/S1 translaminar epidural steroid injection. Following review of allergy and review of potential side effects and complications, including, but not necessarily limited to, infection, allergic reaction, local tissue breakdown, temporary as well as permanent nerve injury, paralysis, stroke and possible , the patient indicated that the patient understood and agreed to proceed. An informed consent document was signed by the patient, witnessed by a nurse, and placed in the patient's chart. Additionally, other treatment options including modalities, medications, and physical therapy were reviewed with the patient. After review of previous anaesthesic history and IV conscious sedation the patient was deemed safe to proceed with today?s procedure with IV conscious sedation as ASA class II designation. Safety time-out was performed to confirm patient ID, procedure to be performed and site of procedure. IV sedation was accomplished with a combination of 1mg of Versed administered by the RN after DO order, titrated to patient comfort during the course of the procedure while the patient remained responsive to all verbal commands. In the prone position, following sterile prep and drape of the lumbar region, the L5/S1 translaminar space was identified fluoroscopically. The skin was anesthetized via a 25-gauge, 1.5-inch needle with 1% lidocaine solution. At this point, a 22-gauge short bevel spinal needle was atraumatically introduced and advanced under fluoroscopic guidance into the region of the L5/S1 translaminar space. Depth was confirmed on lateral view. Radiological data, including multiple fluoroscopic views of the lumbar spine, reveal a spinal needle at the L5/S1 translaminar space. Lateral views then show placement of the needle in the epidural space. Subsequent views show contrast material flowing superiorly and inferiorly in the epidural space. No vascular or intrathecal uptake is observed. At this point, using loss of resistance technique with saline and air, the epidural space was entered. This was confirmed following negative aspiration with injection of approximately 1.5cc of Isovue 200, showing excellent epidural flow without vascular or intrathecal uptake. At this point, 1 cc of 1% lidocain e solution combined with 2cc or 10mg of dexamethasone and 6mg of betamethasone was injected without incident. The patent tolerated the procedure without signs of symptoms of complications prior to transfer to the recovery area for further monitoring. The patient was then transferred to the recovery area where they were observed for an appropriate period of time after the injection. The patient reported a VAS score of 7 prior to the procedure and a post-procedure VAS of 0. POST OP INSTRUCTIONS The patient was provided a Pain Log to continue to record their response to the target-specific procedure prior to follow-up visit with their referring physician. Additionally, specific post-injection care instructions and a contact number to our office were provided if concerns arise regarding possible complications associated with the procedure are suspected.
== END 2024-06-04 15:15 | disposition home or self-care (01) ==
LOC: RAD 13:14
PROVIDERS: Family Provider Internal Medicine; PCP Internal Medicine; Referring Provider Physical Medicine & Rehabilitation; Visit Provider Physical Medicine & Rehabilitation
DX: M51.17 Intervertebral disc disorders with radiculopathy, lumbosacral region (principal); M48.07 Spinal stenosis, lumbosacral region
CPT/HCPCS: 62323; 99152; J0702; J1100; J2250; J3490

== ENCOUNTER → 2024-06-05 13:33 | Outpatient (CLI) | payer MEDICARE, SELFPAY ==
[2024-06-05 15:03] LABS: Alanine Aminotransferase 27 IU/L (<50); Albumin 5.1 g/dL (3.5-5.0); Albumin Globulin Ratio 2.1 (1.0-2.8); Alkaline Phosphatase 96 U/L (38-126); Aspartate Aminotransferase 26 IU/L (17-59); Bilirubin Total 0.9 mg/dL (0.2-1.3); Blood Urea Nitrogen 21 mg/dL (9-20); Calcium 10.3 mg/dL (8.4-10.2); Carbon Dioxide 22 mmol/L (22-32); Chloride 105 mmol/L (98-107); Cholesterol 211 mg/dL (140-199); Estimated Glomerular Filt Rate > 60 mL/min (>60); Globulin 2.4 g/dL (1.7-4.1); Glucose 123 mg/dL (80-110); HDL Cholesterol 107 mg/dL (40-60); HEMOLYSIS < 15 (0-50); LDL Cholesterol Calculated 88 mg/dL (<100); Potassium 4.2 mmol/L (3.4-5.1); Sodium 137 mmol/L (137-145); Total Protein 7.5 g/dL (6.3-8.2); Triglycerides 82 mg/dL (35-150)
== END ==
PROVIDERS: Family Provider Internal Medicine; PCP Internal Medicine; Referring Provider Internal Medicine; Visit Provider Internal Medicine
DX: E78.2 Mixed hyperlipidemia (principal); I10 Essential (primary) hypertension
CPT/HCPCS: 36415; 80053; 80061

== ENCOUNTER → 2024-07-01 08:31 | Outpatient (CLI) | payer MEDICARE, SELFPAY ==
[2024-07-01 09:08] LABS: Hematocrit 43.8 % (41-53)
[2024-07-01 10:13] LABS: Testosterone 468 ng/dL (71.8-623)
[2024-07-02 12:17] LABS: PSA, Total < 0.1 ng/mL (0.0-4.0)
== END ==
PROVIDERS: Family Provider Internal Medicine; PCP Internal Medicine; Referring Provider Urology; Visit Provider Urology
DX: E29.1 Testicular hypofunction (principal); Z85.46 Personal history of malignant neoplasm of prostate
CPT/HCPCS: 36415; 84153; 84154; 84403; 85014

== ENCOUNTER → 2024-09-10 08:38 | Outpatient (CLI) | payer MEDICARE, SELFPAY ==
--- NOTE | 2024-09-10 08:39 | DI.RAD.S_ITS ---
PROCEDURE: XR SHOULDER RT MIN 2V INDICATIONS: RIGHT SHOULDER PAIN TECHNIQUE: 3 views of the shoulder were acquired. COMPARISON: None. FINDINGS: Bones: No fractures or dislocations. No suspicious bony lesions. Visualized ribs appear intact. Note is made of moderate degenerative AC joint osteoarthritis and mild glenohumeral joint degenerative change. Soft tissues: No suspicious soft tissue calcifications. IMPRESSION: No trauma found. 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 Dictated by: Albino David M.D. on 09/10/2024 at 9:46 Approved by: Albino David M.D. on 09/10/2024 at 9:47
--- NOTE | 2024-09-10 08:39 | DI.RAD.S_ITS ---
PROCEDURE: XR CERVICAL SPINE 4V OR 5V INDICATIONS: RIGHT SHOULDER PAIN TECHNIQUE: 5 views of the cervical spine acquired including both obliques. COMPARISON: [facility], CR, XR CERVICAL SPINE 2V OR 3V, 12/30/2017, 11:10. FINDINGS: Bones: No fractures or dislocations to the T1 level. Oblique images demonstrate persistent moderately severe bilateral C5-6 and C6-7 bony foraminal stenoses associated with degenerative disc disease previously present in that area, mildly worsened from the comparison study in December of 2017. Subluxation is not seen. Soft tissues: No prevertebral soft tissue swelling. IMPRESSION: Moderately severe worsening degenerative disc disease with facet and uncovertebral osteoarthritic change prominent at C5-6 and C6-7, likely causing bilateral neural foraminal impingement. The degree of worsening from 2018 is mild. No trauma or subluxation found. Dictated by: Albino David M.D. on 09/10/2024 at 9:43 Approved by: Albino David M.D. on 09/10/2024 at 9:45
== END ==
PROVIDERS: Family Provider Internal Medicine; PCP Internal Medicine; Referring Provider Physical Medicine & Rehabilitation; Visit Provider Physical Medicine & Rehabilitation
DX: M19.011 Primary osteoarthritis, right shoulder (principal); M25.511 Pain in right shoulder; M47.812 Spondylosis without myelopathy or radiculopathy, cervical region; M50.322 Other cervical disc degeneration at C5-C6 level; M48.02 Spinal stenosis, cervical region
CPT/HCPCS: 72050; 73030

== ENCOUNTER → 2024-10-01 09:29 | Outpatient (CLI) | payer MEDICARE, SELFPAY ==
[2024-10-02 10:42] LABS: Fecal Immunochemical Test Negative (Negative)
== END ==
PROVIDERS: Family Provider Internal Medicine; PCP Internal Medicine; Referring Provider Internal Medicine; Visit Provider Internal Medicine
DX: Z12.11 Encounter for screening for malignant neoplasm of colon (principal); Z86.0100 Personal history of colon polyps, unspecified
CPT/HCPCS: 82274

== ENCOUNTER → 2024-12-29 13:55 | Outpatient (CLI) | payer MEDICARE, SELFPAY ==
[2024-12-29 14:35] LABS: Hematocrit 45.6 % (41-53)
[2024-12-29 15:22] LABS: Alanine Aminotransferase 27 IU/L (<50); Albumin 4.9 g/dL (3.5-5.0); Albumin Globulin Ratio 2.5 (1.0-2.8); Alkaline Phosphatase 76 U/L (38-126); Aspartate Aminotransferase 31 IU/L (17-59); BUN Creatinine Ratio 25.3 (6-22); Bilirubin Total 1.1 mg/dL (0.2-1.3); Blood Urea Nitrogen 19 mg/dL (9-20); Calcium 9.8 mg/dL (8.4-10.2); Carbon Dioxide 26 mmol/L (22-32); Chloride 102 mmol/L (98-107); Estimated Glomerular Filt Rate > 60 mL/min (>60); Glucose 157 mg/dL (70-99); HEMOLYSIS < 15 (0-50); Potassium 3.9 mmol/L (3.4-5.1); Sodium 138 mmol/L (137-145); Total Protein 6.9 g/dL (6.3-8.2)
[2024-12-29 15:55] LABS: Prostate Specific Antigen < 0.064 ng/mL (0.10-4.00); Testosterone 317 ng/dL (71.8-623)
== END ==
PROVIDERS: Family Provider Internal Medicine; PCP Internal Medicine; Referring Provider Urology; Visit Provider Urology
DX: N39.3 Stress incontinence (female) (male) (principal); C61 Malignant neoplasm of prostate
CPT/HCPCS: 36415; 80053; 84153; 84403; 85014

== ENCOUNTER → 2025-05-01 09:54 | Outpatient (CLI) | payer MEDICARE, SELFPAY ==
--- NOTE | 2025-05-01 09:58 | DI.RAD.S_ITS ---
PROCEDURE: XR ANKLE RT MIN 3V INDICATIONS: DISTAL MEDIAL TIBIA PAIN TECHNIQUE: 3 views of the ankle were acquired. COMPARISON: None. FINDINGS: Bones: No fractures or dislocations. Ankle mortise is normally aligned. No suspicious bony lesions. Soft tissues: No tibiotalar joint effusion. Achilles tendon appears normal. IMPRESSION: No visualized acute fracture or dislocation. However, if clinical concern and/or pain persist, short interval imaging followup in 7-10 days is recommended, as occult injury cannot be definitively excluded. Dictated by: Tatum Michaels M.D. on 05/01/2025 at 17:11 Approved by: Tatum Michaels M.D. on 05/01/2025 at 17:11
== END ==
PROVIDERS: PCP Internal Medicine; Referring Provider Podiatrist Foot & Ankle Surgery; Visit Provider Podiatrist Foot & Ankle Surgery
DX: M25.571 Pain in right ankle and joints of right foot (principal)
CPT/HCPCS: 73610

== ENCOUNTER → 2025-06-15 11:20 | Outpatient (CLI) | payer MEDICARE, SELFPAY ==
[2025-06-15 12:02] LABS: Hematocrit 43.1 % (41-53); Hemoglobin 14.9 g/dL (13.5-17.5); Mean Corpuscular HGB Conc 34.5 % (30-36); Mean Corpuscular Hemoglobin 33.9 PG (26-34); Mean Corpuscular Volume 98.1 fL (80-100); Platelet Count 167 X10^3/uL (150-400)
[2025-06-15 12:29] LABS: Alanine Aminotransferase 27 IU/L (<50); Albumin 4.6 g/dL (3.5-5.0); Albumin Globulin Ratio 2.0 (1.0-2.8); Alkaline Phosphatase 69 U/L (38-126); Blood Urea Nitrogen 18 mg/dL (9-20); Calcium 9.5 mg/dL (8.4-10.2); Carbon Dioxide 24 mmol/L (22-32); Chloride 105 mmol/L (98-107); Cholesterol 159 mg/dL (140-199); Estimated Glomerular Filt Rate > 60 mL/min (>60); Globulin 2.3 g/dL (1.7-4.1); Glucose 137 mg/dL (70-99); HDL Cholesterol 76 mg/dL (40-60); HEMOLYSIS < 15 (0-50); Potassium 4.0 mmol/L (3.4-5.1); Sodium 139 mmol/L (137-145); Total Protein 6.9 g/dL (6.3-8.2); Triglycerides 131 mg/dL (35-150)
[2025-06-15 12:32] LABS: Hemoglobin A1C% w Est Avg Glu 5.3 % (4.0-6.0)
[2025-06-15 13:04] LABS: Prostate Specific Antigen < 0.064 ng/mL (0.10-4.00)
== END ==
PROVIDERS: PCP Internal Medicine; Referring Provider Urology; Visit Provider Urology
DX: C61 Malignant neoplasm of prostate (principal); R73.01 Impaired fasting glucose; E78.2 Mixed hyperlipidemia; E29.1 Testicular hypofunction; I47.10 Supraventricular tachycardia, unspecified
CPT/HCPCS: 36415; 80053; 80061; 83036; 84153; 84403; 85027

== ENCOUNTER 2025-07-02 08:03 | Observation (INO) | payer MEDICARE, SELFPAY ==
[2025-07-02] VITALS (25 sets, daily range): BP systolic 112–173; BP diastolic 57–86; PULSE 50–72; RESP 13–24; TEMP 36.5–37.1; O2SAT 93–98; BMI 25.5
--- NOTE | 2025-07-02 08:21 | EKG_ITS ---
[address] [address] Test Date: 2025-07-02 Pat Name: Roberto Kunz Department: Room: Gender: Male [employer]: TITO : 1940 Requested By: Order Number: [id number] Reading MD: Danny Georges Measurements Intervals [place] Rate: 59 P: 45 TX: 184 QRS: -22 QRSD: 146 T: 13 QT: 462 QTc: 457 Interpretive Statements Sinus bradycardia with sinus arrhythmia Right bundle branch block Minimal voltage criteria for LVH, may be normal variant ( R in aVL ) Electronically Signed On 07-03-2025 13:31:45 PST by Danny Georges
--- NOTE | 2025-07-02 08:21 | DI.RAD.S_ITS ---
PROCEDURE: XR CHEST 1V INDICATIONS: Chest Pain TECHNIQUE: One view of the chest was acquired. COMPARISON: [facility], CR, XR CHEST 2V, 07/18/2023, 14:28. FINDINGS: Surgical changes and devices: None. Lungs and pleura: Lungs are clear. No pleural effusions or pneumothorax. Mediastinum: Mediastinal contours appear normal. Heart size is normal. Bones and chest wall: No suspicious bony lesions. Overlying soft tissues appear unremarkable. IMPRESSION: No acute cardiopulmonary abnormality is seen. Dictated by: South Hassan M.D. on 07/02/2025 at 9:19 Approved by: South Hassan M.D. on 07/02/2025 at 9:20
[2025-07-02 08:27] LABS: Add Manual Diff / Slide Review NO; Hematocrit 44.0 % (41-53); Hemoglobin 15.3 g/dL (13.5-17.5); Lymphocytes Absolute Auto 900 /uL (1100-4500); Mean Corpuscular HGB Conc 34.7 % (30-36); Mean Corpuscular Hemoglobin 34.0 PG (26-34); Mean Corpuscular Volume 97.9 fL (80-100); Platelet Count 148 X10^3/uL (150-400)
[2025-07-02 08:28] LABS: INR 0.9 (0.9-1.3); Prothrombin Time 10.3 SECONDS (9.4-12.5)
[2025-07-02 08:31] LABS: PTT Partial Thromboplastin Tim 29 SECONDS (25.1-36.5)
--- NOTE | 2025-07-02 08:33 | DI.CT.S_ITS ---
PROCEDURE: CT STROKE INDICATIONS: c/f CVA TECHNIQUE: Noncontrast 4.5 mm thick angled axial sections acquired from the foramen magnum to the vertex, with coronal reformats. For radiation dose reduction, the following was used: automated exposure control, adjustment of mA and/or kV according to patient size. COMPARISON: None. FINDINGS: Image quality: Diagnostic. CSF spaces: Basal cisterns are patent. No extra-axial fluid collections. The ventricles are symmetric in size and shape. Brain: No intracranial bleeds or mass effect. There is cerebral volume loss, with resultant ventricular and sulcal prominence. There are periventricular and deep white matter chronic small vessel ischemic changes. There is intracranial internal carotid artery atherosclerosis. Skull and face: Calvarium and visualized facial bones appear intact, without suspicious lesions. Sinuses: Visualized sinuses and mastoids are clear. IMPRESSION: No acute intracranial pathology. Comment: Findings were discussed with Dr. Hidalgo on 07/02/2025 at 0858 hours This study fulfills neurological imaging criteria for inclusion or exclusion of acute stroke therapies based on available published neurological guidelines. Dictated by: Cornelio Bustillos M.D. on 07/02/2025 at 8:57 Approved by: Cornelio Bustillos M.D. on 07/02/2025 at 8:58
--- NOTE | 2025-07-02 08:33 | DI.CT.S_ITS ---
PROCEDURE: CT ANGIO HEAD AND NECK INDICATIONS: c/f CVA TECHNIQUE: After the administration of intravenous contrast, 1 mm thick sections acquired from the aortic arch through the [place]. 3-dimensional ivimmvl-bdtdqpqyx-fprbckktmg (MIP) and/or volume rendering reformats were acquired of the central intracranial vasculature and neck separately. For radiation dose reduction, the following was used: automated exposure control, adjustment of mA and/or kV according to patient size. COMPARISON: None. FINDINGS: Image quality: Diagnostic HEAD ANGIOGRAPHY: Anterior circulation: ICAs: Mild cavernous calcifications. ACAs: Patent MCAs: Patent AComm: No aneurysm Venous sinuses: Patent on this arterial phase study Posterior circulation: Dominance: Right Vertebral arteries: Patent Basilar artery: Patent PComms: No aneurysm wildlife management professor: Patent NECK ANGIOGRAPHY: Aortic arch and subclavian arteries: Mild calcifications. 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 CCAs: Patent ICA origins (by NASCET criteria): [id number]-[id number] areas of narrowing in the left ICA origin and proximal cervical ICA, less than 50%. Minimal calcifications of the right ICA origin without narrowing ICAs: Otherwise patent ECAs: Origins are patent. Vertebral arteries: Patent Soft tissues: No enlarged lymph nodes by size criteria Asymmetrically enlarged and heterogeneous appearance of the right thyroid Possible posterior nodule measures 1.8 cm. Lung apices: No apical pneumothorax Bones: No aggressive appearing osseous abnormality. IMPRESSION: No large vessel occlusion or high-grade stenosis. Overall low-grade areas of atherosclerotic disease as described above, worst in the proximal left ICA. 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 Enlarged right thyroid with a possible nodule measuring up to 1.8 cm. Nonurgent sonographic evaluation suggested. Consider MRI if there is high concern for infarction. Any quantitative measurements of stenosis were performed using NASCET criteria. Dictated by: Scottie Lopez M.D. on 07/02/2025 at 9:02 Approved by: Scottie Lopez M.D. on 07/02/2025 at 9:09
[2025-07-02 08:35] LABS: Alanine Aminotransferase 30 IU/L (<50); Albumin 4.7 g/dL (3.5-5.0); Albumin Globulin Ratio 1.8 (1.0-2.8); Alkaline Phosphatase 70 U/L (38-126); Blood Urea Nitrogen 20 mg/dL (9-20); Calcium 9.3 mg/dL (8.4-10.2); Carbon Dioxide 23 mmol/L (22-32); Chloride 105 mmol/L (98-107); Creatine Kinase 176 U/L (55-170); Estimated Glomerular Filt Rate > 60 mL/min (>60); Globulin 2.6 g/dL (1.7-4.1); Glucose 159 mg/dL (70-99); HEMOLYSIS 29 (0-50); Lipase 69 U/L (23-300); Magnesium 2.1 mg/dL (1.6-2.3); Potassium 4.1 mmol/L (3.4-5.1); Sodium 137 mmol/L (137-145); Total Protein 7.3 g/dL (6.3-8.2)
[2025-07-02 08:46] LABS: NT-proBNP (BNP-Adult 18+) 64 pg/mL (<450); Troponin I < 0.012 ng/mL (0.01-0.034)
[2025-07-02 09:02] LABS: Ethanol (ETOH) < 10 mg/dL (<10)
[2025-07-02] MEDS: ASPIRIN 81 MG CHEW TAB 324 MG PO (09:03)
[2025-07-02 09:12] LABS: Appearance Urine UA CLEAR; Bilirubin Urine UA NEGATIVE (NEGATIVE); Color Urine UA YELLOW; Glucose Urine UA NEGATIVE (Negative); Ketones Urine UA NEGATIVE (NEGATIVE); Leukocyte Esterase Urine UA NEGATIVE (NEGATIVE); Nitrite Urine UA NEGATIVE (Negative); Occult Blood Urine UA NEGATIVE (Negative); Protein Urine UA NEGATIVE (Negative); Specific Gravity Urine UA 1.015 (1.000-1.035); Urobilinogen Urine UA 0.2 E.U./dL (0.2); pH Urine UA 6.0 (4.5-8.0)
[2025-07-02 09:24] LABS: Culture Indicated Urine Cult Not Indicated
[2025-07-02] MEDS: MECLIZINE HCL 12.5 MG TABLET 25 MG PO (14:06)
--- NOTE | 2025-07-02 16:13 | DI.MRI.S_ITS ---
PROCEDURE: MR HEAD/BRAIN WO CON INDICATIONS: Stroke-like symptoms TECHNIQUE: Non-contrast axial T1 spin echo, axial T2 fast spin echo, sagittal and axial FLAIR, coronal T2 fast spin echo, axial gradient echo, axial diffusion and ADC through the brain. COMPARISON: [facility], CT, CT STROKE, 07/02/2025, 8:41. [facility], CT, CT ANGIO HEAD AND NECK, 07/02/2025, 8:41. FINDINGS: Image quality: Excellent. CSF spaces: Ventricles appear symmetric in size and shape. Basal cisterns are patent. No extra-axial fluid collections. Brain: No intracranial bleeds or mass effects. There is cerebral volume loss for age. There are periventricular and deep white matter chronic small vessel ischemic changes. Brainstem appears normal. Diffusion-weighted images show no acute infarct. No chronic ischemic insults. Normal intravascular flow voids are present. Skull and face: Calvarial bone marrow is normal in signal. Orbits are normal. Note is made of bilateral lens replacements. Sinuses: Sinuses and mastoids are clear. IMPRESSION: No findings of acute or subacute infarction can be seen. Note is made of age-appropriate brain parenchymal volume loss and chronic small vessel ischemic changes. Dictated by: Yordan Duque M.D. on 07/02/2025 at 17:44 Approved by: Yordan Duque M.D. on 07/02/2025 at 17:45
--- NOTE | 2025-07-02 16:13 | DI.ECHO.S_ITS ---
[facility] : : [address] : : [place] : : [id number] : : Phone: [phone] Echocardiogram Report + + :Name: OSIRIS NOLEN Study Date: 07/03/2025 Height: 70 in : :[facility] ReadingLocation: Weight: 178 lb : : Gender: Male BSA: 2.0 m2 : :: 1940 Age: 85 yrs BP: 128/70 mmHg: :Reason For Study: STROKE-LIKE SYMPTOMS : :Ordering Physician: SOPHIE, : :ANITHA Performed By: Shawn Lopez : :Referring: ANITHA BARRIOS : + + Interpretation Summary The patient was in sinus bradycardia with heart rates between 49-57 bpm during the exam. The left ventricle is normal in size. The left ventricular ejection fraction is normal. The ejection fraction is estimated to be 60-65%. The right ventricle is mildly dilated. The right ventricular systolic function is normal. No significant valvular pathology seen. The IVC is of normal diameter and collapses greater than 50% with a sniff. This suggests a low right atrial pressure of 3 mm Hg. Procedure: A two-dimensional transthoracic echocardiogram with color flow and Doppler was performed. The study quality was technically good. Comparison is made with the echocardiogram of 12/13/2022. The patient was in sinus bradycardia with heart rates between 49-57 bpm during the exam. Left Ventricle: The left ventricle is normal in size. There is normal left ventricular wall thickness. There is no ventricular septal defect visualized. The papillary muscle tip is fibrocalcific. There is no thrombus. The ejection fraction is estimated to be 60-65%. The left ventricular ejection fraction is normal. There has been no significant change since the previous exam. There are no focal wall motion abnormalities. Diastolic parameters suggest a relaxation abnormality of the left ventricle, consistent with probable normal filling pressures. Right Ventricle: The right ventricle is mildly dilated. The right ventricular systolic function is normal. Atria: The left atrium is mildly dilated. There has been no significant change since the previous study. The right atrium is mildly dilated. There is no Doppler evidence for an interatrial shunt. Mitral Valve: The mitral valve leaflets appear normal. There is no evidence of stenosis, fluttering, or prolapse. There is no mitral regurgitation noted. Aortic Valve: The aortic valve is trileaflet. The aortic valve opens well. The aortic valve is mildly calcified. Tricuspid Valve: The tricuspid valve is not well visualized, but is grossly normal. There is trace tricuspid regurgitation. Pulmonary artery pressures cannot be estimated because of the lack of a measurable TR jet velocity. Pulmonic Valve: The pulmonic valve is not well seen, but is grossly normal. There is no pulmonic valvular regurgitation. Great Vessels: The aortic root is normal size. The dimensions of the ascending aorta are normal. The pulmonary is not well visualized. The IVC is of normal diameter and collapses greater than 50% with a sniff. This suggests a low right atrial pressure of 3 mm Hg. Pericardium/ Pleura There is no pericardial effusion. There is no pleural effusion. MMode/2D Measurements & Calculations LVIDd: 5.3 cm LVOT diam: 2.2 cm LVIDs: 3.7 cm Ao root diam: 3.4 cm FS: 31.1 % asc Aorta Diam: 3.6 cm EPSS: 0.68 cm IVSd: 1.0 cm LVPWd: 1.1 cm LV boss. diameter/BSA (cm/m^2): 2.7 LV sys. diameter/BSA (cm/m^2): 1.9 LA A2 area: 26.6 cm2 RA long axis: 5.4 cm LA A4 area: 16.1 cm2 RA area: 21.8 cm2 LA length (vol): 6.0 cm RA vol: 75.6 ml LA vol: 60.6 ml RA : 38.1 ml/m2 LA vol index: 30.5 ml/m2 IVC diam: 1.7 cm RVD1 (basal): 4.4 cm RVD2 (mid): 3.5 cm TAPSE: 2.9 cm Doppler Measurements & Calculations Ao V2 max: 152.7 cm/sec LVOT Max Tong: 110.7 cm/sec Ao V2 mean: 101.1 cm/sec LV V1 max P.9 mmHg Ao max P.3 mmHg LV V1 VTI: 22.4 cm Ao mean P.6 mmHg DERRICK(I,D): 2.6 cm2 Ao V2 VTI: 33.5 cm DERRICK(V,D): 2.9 cm2 sev ratio: 0.67 DERRICK indexed to BSA (cm^2/m^2): 1.3 MV E max tong: 44.1 cm/sec TR max tong: 229.4 cm/sec MV A max tong: 60.5 cm/sec TR max P.0 mmHg MV E/A: 0.73 PA V2 max: 118.7 cm/sec Med Peak E' Tong: 6.4 cm/sec PA V2 mean: 78.1 cm/sec E/E' med: 6.9 PA mean P.8 mmHg Lat Peak E' Tong: 8.7 cm/sec PA pr(Accel): 39.6 mmHg E/E' lat: 5.1 E/e' average: 6.0 MV dec time: 0.26 sec SV(LVOT): 88.1 ml Reading Physician:02:40 PM
--- NOTE | 2025-07-02 16:24 | PM.HP.1 ---
History of Present Illness History of Present Illness Date Patient Seen: 07/02/25 Chief complaint: Bilateral Leg Tingling Narrative: Chief complaint: Woke up this morning with bilateral leg tingling and feeling slightly off balance History of present illness: 07/02: 85-year-old male lives alone woke up this morning with slight tingling in his calves slightly dizzy but no overt dizziness did not stop him from making his coffee and having it and taking care but he was concerned about the symptoms and came to the emergency room for evaluation Findings in the emergency room significant for: CT of the head and CT angio of the head and neck without significant findings Hemogram and comprehensive metabolic unremarkable EKG with sinus bradycardia heart rate 59 right bundle-branch block no acute ST segments or T-wave changes Review of systems: No syncope loss of consciousness visual changes 0 fever or chills rigors No chest pain palpitations shortness for breath No nausea vomiting diarrhea No focal weakness No urinary symptom Physical exam: Alert cogent elderly male in no acute distress HEENT unremarkable Neck no carotid bruits Heart rate and rhythm regular Lungs clear Abdomen nondistended Neuro Alert and oriented x4 Cranial nerves intact 5 out of strength in all extremities Negative Romberg Normal gait [id number] intact Assessment and plan: Vague symptoms not very suspicious for stroke or TIA Complete the workup for stroke-like symptoms with echocardiogram and brain MRI DVT prophylaxis: Patient is ambulatory no DVT prophylaxis needed Code status: Full code blue Disposition: Observation: Time based billin minutes were involved in evaluation of this patient including [id number] evaluation neurologic examination review of previous records review of objective laboratory and imaging findings review of EKG findings and discussion with care team [facility] Medical History (Updated 07/02/25 @ 15:17 by Nithya Oscar RN) Do not resuscitate Primary osteoarthritis of both knees Impingement of right shoulder SVT (supraventricular tachycardia) Bilateral knee pain Hypogonadism in male Left hip pain Neurogenic claudication Degenerative arthritis of knee, bilateral Essential hypertension Overweight Elevated blood pressure reading History of polymyalgia rheumatica Mixed hyperlipidemia Primary osteoarthritis involving multiple joints Chronic low back pain History of colonic polyps History of melanoma Wears glasses Hearing loss Rheumatic fever Mumps Measles Herpes Chicken pox Facet arthropathy, lumbar Lumbar radiculopathy Erectile dysfunction after radical prostatectomy History of malignant neoplasm of prostate Left flank pain History of external beam radiation therapy History of nephrolithiasis History of prostate cancer History of abdominal pain History of back pain Kidney stone (~2017) Surgical History Anesthesia History of shoulder surgery (~1981) History of lumbar discectomy H/O arthroscopic knee surgery Previous back surgery (~1984) H/O hernia repair Family History Father Stroke Diabetes mellitus Mother Dementia Social History (Updated 06/14/25 @ 14:55 by Feli Rosas MA) marital status: details: 01/2021 (Anisha - brain aneurysm) number of children: 5 household members: none lives independently: Yes caregiver/support person: No housing: house occupational status: other current occupational exposures/hazards: No stephen/evangelical: Spiritual special stephen needs: No leisure activities: exercise, reading and volunteer work seatbelt use: always water heater temp set < 120 deg: Yes working smoke detector in home: Yes fire extinguisher in home: Yes carbon monox detector in home: Yes firearms in home: No do you feel safe at home: Yes Smoking Status: Never smoker Tobacco: How many years used: 10 second hand exposure: Yes alcohol intake: current during the past year weight has: remained stable well-balanced diet: daily or most days daily servings fruits/ve-1 caffeine: Yes eating out: 1-3 times/week Type(s) of exercise: walking, occasional exercise and other frequency: 5-6 times per week duration: < 15 minutes/day Meds Home Medications and Allergies Home Medications ?Medication ?Instructions ?Recorded ?Confirmed ?Type loratadine 10 mg tablet (Claritin) 10 mg PO Q DAY ##0 06/27/12 07/02/25 History cholecalciferol (vitamin D3) 50 50 mcg PO DAILY 02/05/20 07/02/25 History mcg (2,000 unit) capsule testosterone 2 pump topical DAILY #180 grams 10/05/24 07/02/25 Rx magnesium 200 mg tablet 200 mg PO DAILY cramps 06/14/25 07/02/25 History amlodipine 5 mg tablet 5 mg PO DAILY #90 tabs 06/23/25 07/02/25 Rx meloxicam 15 mg tablet 15 mg PO DAILY #90 tabs 11/26/25 12/05/25 Rx simvastatin 10 mg tablet 10 mg PO QDAY #90 tabs 06/23/25 07/02/25 Rx Allergies Allergy/AdvReac Type Severity Reaction Status Date / Time No Known Drug Allergies (NO Allergy Unknown Verified 07/02/25 08:53 KNOWN DRUG ALLERGIES) Exam Vital Signs (past 8 hours): - 07/02/25 08:30 07/02/25 08:35 07/02/25 08:35 Temperature Pulse Rate 72 56 L Respiratory Rate 21 19 Blood Pressure 156/71 H Pulse Oximetry 97 97 Oxygen Delivery Method 07/02/25 08:53 07/02/25 08:55 07/02/25 08:55 Temperature 98.5 F Pulse Rate 69 54 L Respiratory Rate 16 19 Blood Pressure 156/71 H 170/72 H Pulse Oximetry 98 95 Oxygen Delivery Method Room Air 07/02/25 09:00 07/02/25 09:00 07/02/25 09:15 Temperature Pulse Rate 60 Respiratory Rate 19 Blood Pressure 147/60 H 165/86 H Pulse Oximetry 94 Oxygen Delivery Method 07/02/25 09:15 07/02/25 09:30 07/02/25 09:30 Temperature Pulse Rate 56 L 54 L Respiratory Rate 15 16 Blood Pressure 141/67 H Pulse Oximetry 93 93 Oxygen Delivery Method 07/02/25 10:04 07/02/25 10:30 07/02/25 11:00 Temperature Pulse Rate 60 52 L 62 Respiratory Rate 16 Blood Pressure Pulse Oximetry 94 93 95 Oxygen Delivery Method 07/02/25 11:05 07/02/25 11:05 07/02/25 11:30 Temperature Pulse Rate 53 L 51 L Respiratory Rate 13 13 Blood Pressure 161/72 H Pulse Oximetry 96 94 Oxygen Delivery Method 07/02/25 11:31 07/02/25 11:31 07/02/25 12:00 Temperature Pulse Rate 50 L 54 L Respiratory Rate 17 20 Blood Pressure 152/72 H Pulse Oximetry 95 94 Oxygen Delivery Method 07/02/25 12:00 07/02/25 12:30 07/02/25 12:31 Temperature Pulse Rate 52 L Respiratory Rate 14 Blood Pressure 165/74 H 153/74 H Pulse Oximetry 95 Oxygen Delivery Method 07/02/25 12:31 07/02/25 13:00 07/02/25 13:30 Temperature Pulse Rate 53 L 62 52 L Respiratory Rate 14 22 24 Blood Pressure Pulse Oximetry 94 96 94 Oxygen Delivery Method 07/02/25 14:00 07/02/25 14:30 Temperature Pulse Rate 54 L 50 L Respiratory Rate 19 19 Blood Pressure Pulse Oximetry 94 94 Oxygen Delivery Method Oxygen Delivery Method Room Air Objective Labs 07/02/25 08:12 07/02/25 08:12 Labs: Laboratory Results - last 24 hr 07/02/25 07/02/25 08:12 08:55 WBC 3.6 L RBC 4.50 Hgb 15.3 Hct 44.0 MCV 97.9 MCH 34.0 MCHC 34.7 RDW 12.7 Plt Count 148 L Neut % (Auto) 62.9 Lymph % (Auto) 24.9 L Jenkins % (Auto) 8.4 Eos % (Auto) 2.7 Baso % (Auto) 1.1 Neut # (Auto) 2300 Lymph # (Auto) 900 L Jenkins # (Auto) 300 Eos # (Auto) 100 Baso # (Auto) 0 PT 10.3 INR 0.9 APTT 29 Sodium 137 Potassium 4.1 Chloride 105 Carbon Dioxide 23 BUN 20 Creatinine 0.72 Estimated GFR > 60 BUN/Creatinine Ratio 27.8 H Glucose 159 H Calcium 9.3 Magnesium 2.1 Total Bilirubin 1.0 AST 38 ALT 30 Alkaline Phosphatase 70 Total Creatine Kinase 176 H Troponin I < 0.012 NT-Pro-B Natriuret Pep 64 Total Protein 7.3 Albumin 4.7 Globulin 2.6 Albumin/Globulin Ratio 1.8 Lipase 69 Urine Color Yellow Urine Appearance Clear Urine pH 6.0 Ur Specific [place] 1.015 Urine Protein Negative Urine Glucose (UA) Negative Urine Ketones Negative Urine Occult Blood Negative Urine Nitrate Negative Urine Bilirubin Negative Urine Urobilinogen 0.2 Ur Leukocyte Esterase Negative Urine RBC None seen Urine WBC None seen Ur Squamous Epith Cells 0-1 /hpf Urine Bacteria None seen Ur Culture Indicated? Cult not indicated Vol Urine Centrifuged 10ml (spun) Ethyl Alcohol < 10 Assessment & Plan Time-Based Coding :: [TOTAL MINUTES] spent with patient and on the chart (including review of chart, obtaining history, exam, reviewing outside data, placing orders, documenting exam and treatment plan, and counseling patient) on [DATE].
[2025-07-02 16:46] LABS: Cholesterol 179 mg/dL (140-199); HDL Cholesterol 80 mg/dL (40-60); Triglycerides 107 mg/dL (35-150)
[2025-07-02 16:49] LABS: Hemoglobin A1C% w Est Avg Glu 5.2 % (4.0-6.0)
[2025-07-02] MEDS: SODIUM CHLORIDE 0.9% 1,000 ML 50 ML IV (17:03)
[2025-07-02] MEDS: ATORVASTATIN 20 MG TABLET 10 MG PO (20:47)
[2025-07-03 03:00] VITALS: BP 120/63; PULSE 45; RESP 20; TEMP 37; O2SAT 97
[2025-07-03 08:00] VITALS: BP 128/70; PULSE 56; RESP 15; TEMP 37.1; O2SAT 95
[2025-07-03] MEDS: MAGNESIUM OXIDE 400 MG TABLET 200 MG PO (09:45)
[2025-07-03] MEDS: MELOXICAM 7.5 MG TABLET 15 MG PO (09:46)
[2025-07-03] MEDS: LORATADINE 10 MG TABLET PO (09:47)
[2025-07-03] MEDS: CHOLECALCIFEROL (VITAMIN D3) 1,000 UNIT TABLET 2000 UNIT PO (09:47)
--- NOTE | 2025-07-03 12:13 | PM.DS.1 ---
History of Present Illness History of Present Illness Chief complaint: Bilateral Leg Tingling Narrative: From H&P: Woke up this morning with bilateral leg tingling and feeling slightly off balance History of present illness: 07/02: 85-year-old male lives alone woke up this morning with slight tingling in his calves slightly dizzy but no overt dizziness did not stop him from making his coffee and having it and taking care but he was concerned about the symptoms and came to the emergency room for evaluation Findings in the emergency room significant for: CT of the head and CT angio of the head and neck without significant findings Hemogram and comprehensive metabolic unremarkable EKG with sinus bradycardia heart rate 59 right bundle-branch block no acute ST segments or T-wave changes Discharge Providers Provider Date of admission: 07/02/25 13:22 Discharge Date: 07/03/25 Primary care physician: Adriel Molina MD Consults: 07/02/25 16:12 Consult to Discharge Planning Routine Comment: Consult to Occupational Therapy Evaluate & Treat Comment: Physician Instructions: Evaluate and treat Consult to Physical Therapy Evaluate & Treat Comment: Physician Instructions: Evaluate and Treat Consult to Speech Therapy Evaluate & Treat Comment: Physician Instructions: Evaluate and treat Discharge provider: Danny Georges MD Summary Hospital Course Discharge Diagnosis: 1. Transient bilateral leg numbness, resolved. 2. Chronic stable medical conditions include: SVT, lower back pain, bilateral knee pain. Hospital Course: He was admitted with transient bilateral lower leg numbness which was below the knees. This resolved essentially upon presentation. He would stable vital signs, normal telemetry and unremarkable imaging and was felt to be stable for discharge. [N], the patient has documentation of a left ventricle ejection fracture less than or equal to 40%, or moderately or severely reduced left ventricle systolic function. [N], the patient has a history of heart transplant or left ventricular assist device (LVAD). [N], the patient was prescribed an TAMMY inhibitor at discharge or is already being taken. The patient was not prescribed an TAMMY-inhibitor because of the following exception: NA. [N], the patient was prescribed Metoprolol succinate, bisoprolol, or carvedilol at discharge. The patient was not prescribed Metoprolol succinate, bisoprolol, or carvedilol at discharge because of the following exception: NA. Status at Discharge Cognitive/behavioral status at discharge: oriented Functional status at discharge: independent ambulation Overall status at discharge: patient is back to baseline Time Spent with Patient Time spent: Less than 30 minutes Exam Vital Signs (past 8 hours): - 07/03/25 08:00 Temperature 98.8 F Pulse Rate 56 L Respiratory Rate 15 Blood Pressure 128/70 Pulse Oximetry 95 Oxygen Flow Rate 0 Oxygen Delivery Method Room Air Oxygen Flow Rate 0 Narrative Exam Narrative: NAD, alert and oriented. Fluent speech. Lungs are clear, normal rate and effort. Heart is regular, no murmur gallop or rub. Abdomen is soft, non distended. Extremities are free of edema. Neuro: Speech is normal, normal cranial nerves. Motor strength is 5/5 in arms and legs. Normal sensory exam to touch. Objective Imaging Multiple studies: : Radiologist's impression: Echo: The patient was in sinus bradycardia with heart rates between 49-57 bpm during the exam. The left ventricle is normal in size. The left ventricular ejection fraction is normal. The ejection fraction is estimated to be 60-65%. The right ventricle is mildly dilated. The right ventricular systolic function is normal. No significant valvular pathology seen. The IVC is of normal diameter and collapses greater than 50% with a sniff. This suggests a low right atrial pressure of 3 mm Hg. Brain MRI: No findings of acute or subacute infarction can be seen. Note is made of age-appropriate brain parenchymal volume loss and chronic small vessel ischemic changes. Head and neck CTA: No large vessel occlusion or high-grade stenosis. Overall low-grade areas of atherosclerotic disease as described above, worst in the proximal left ICA. 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 Enlarged right thyroid with a possible nodule measuring up to 1.8 cm. Nonurgent sonographic evaluation suggested. Brain CT: No acute intracranial pathology. Chest x-ray: No acute cardiopulmonary abnormality is seen. Labs 07/02/25 08:12 07/02/25 08:12 Labs: Laboratory Results - last 24 hr 07/02/25 08:12 Hemoglobin A1c 5.2 Triglycerides 107 Cholesterol 179 LDL Cholesterol, Calc 78 HDL Cholesterol 80 H [facility] Medical History Do not resuscitate Primary osteoarthritis of both knees Impingement of right shoulder SVT (supraventricular tachycardia) Bilateral knee pain Hypogonadism in male Left hip pain Neurogenic claudication Degenerative arthritis of knee, bilateral Essential hypertension Overweight Elevated blood pressure reading History of polymyalgia rheumatica Mixed hyperlipidemia Primary osteoarthritis involving multiple joints Chronic low back pain History of colonic polyps History of melanoma Wears glasses Hearing loss Rheumatic fever Mumps Measles Herpes Chicken pox Facet arthropathy, lumbar Lumbar radiculopathy Erectile dysfunction after radical prostatectomy History of malignant neoplasm of prostate Left flank pain History of external beam radiation therapy History of nephrolithiasis History of prostate cancer History of abdominal pain History of back pain Kidney stone (~2017) Surgical History Anesthesia History of shoulder surgery (~1981) History of lumbar discectomy H/O arthroscopic knee surgery Previous back surgery (~1984) H/O hernia repair Family History Father Stroke Diabetes mellitus Mother Dementia Social History marital status: details: 01/2021 (Anisha - brain aneurysm) number of children: 5 household members: none lives independently: Yes caregiver/support person: No housing: house occupational status: other current occupational exposures/hazards: No stephen/pentecostalism: Spiritual special stephen needs: No leisure activities: exercise, reading and volunteer work seatbelt use: always water heater temp set < 120 deg: Yes working smoke detector in home: Yes fire extinguisher in home: Yes carbon monox detector in home: Yes firearms in home: No do you feel safe at home: Yes Smoking Status: Never smoker Tobacco: How many years used: 10 second hand exposure: Yes alcohol intake: current during the past year weight has: remained stable well-balanced diet: daily or most days daily servings fruits/ve-1 caffeine: Yes eating out: 1-3 times/week Type(s) of exercise: walking, occasional exercise and other frequency: 5-6 times per week duration: < 15 minutes/day Discharge Assessment & Plan Assessment and Plan Assessment: 1. Transient bilateral leg numbness, resolved. 2. Chronic stable medical conditions include: SVT, lower back pain, bilateral knee pain. Plan of Treatment: Discharge with no change in medications. Stroke instructions for acute neurologic symptoms were reviewed with encouragement to call 911 if he does have any symptoms very Discharge Plan Discharge Plan Patient Disposition: Home Provider Discharge Comment: Stable for discharge. Discharge orders & Medications Prescriptions: Continued loratadine [Claritin] 10 MG tablet 10 mg PO Q DAY Qty: 0 cholecalciferol (vitamin D3) 50 mcg (2,000 unit) capsule 50 mcg PO DAILY testosterone 20.25 mg/1.25 gram (1.62 %) gel in metered-dose pump 2 pump topical DAILY Qty: 180 3RF Rx Instructions: apply 2 pump amount over max area of EACH upper arm and shoulder 1.62% magnesium 200 mg tablet 200 mg PO DAILY amlodipine 5 mg tablet 5 mg PO DAILY Qty: 90 3RF simvastatin 10 mg tablet 10 mg PO QDAY Qty: 90 3RF meloxicam 15 mg tablet 15 mg PO DAILY Qty: 90 3RF Medication counseling provided by Pharmacist: No Follow up/Referrals: Adriel Molina MD [Primary Care Provider, Internal Medicine] Diet/Activity/Treatments Diet: Regular Visit Report/Discharge Packet Instructions: Progress in Stroke Prevention, Strokes: Prevention (Alternative Therapy), Transient Ischemic Attack, Recent Physical Activity Associated With Stroke Prevention Stand Alone Forms: Patient Portal/API, Stroke Signs & Symptoms Discharge Data Primary Care Provider: Adriel Molina V Attending Provider: Albino Gonzales Admit Date/Time: 07/02/25 13:22
[2025-07-03 12:30] VITALS: BP 144/82; PULSE 60; RESP 20; TEMP 36.8; O2SAT 95
--- NOTE | 2025-07-03 13:13 | PT.IIE ---
Surgical History (Last Reviewed 06/23/25 @ 07:39 by Adriel Molina MD) Anesthesia H/O arthroscopic knee surgery H/O hernia repair History of lumbar discectomy History of shoulder surgery (~1981) Previous back surgery (~1984) Medical History (Last Updated 06/23/25 @ 08:40 by Adriel Molina MD) Bilateral knee pain Chicken pox Chronic low back pain Degenerative arthritis of knee, bilateral Do not resuscitate Elevated blood pressure reading Erectile dysfunction after radical prostatectomy Essential hypertension Facet arthropathy, lumbar Hearing loss Herpes History of abdominal pain History of back pain History of colonic polyps History of external beam radiation therapy History of malignant neoplasm of prostate History of melanoma History of nephrolithiasis History of polymyalgia rheumatica History of prostate cancer Hypogonadism in male Impingement of right shoulder Kidney stone (~2017) Left flank pain Left hip pain Lumbar radiculopathy Measles Mixed hyperlipidemia Mumps Neurogenic claudication Overweight Primary osteoarthritis involving multiple joints Primary osteoarthritis of both knees Rheumatic fever SVT (supraventricular tachycardia) Wears glasses Physical Therapy Inpatient Evaluation/Re-Eval M1 PT IP Prior Functional Status Start: 07/03/25 13:06 Freq: NEEDED Status: Active Protocol: Document 07/03/25 09:10 [facility] (Rec: 07/03/25 13:12 [facility] [id number]) Medical Review Prior Functional Status Medical History Yes Reviewed Diet/Fluid Regular Consistency Communication intact Mobility and Gait independent no device Activities of Daily indep Living and IADL's Social History Household Members none Living Arrangements House Number of Floors ( Two Floors Floors) Number of Stairs To 0 Enter/Railing? Home Environment Standard Height Toilet,Tub/Shower Home Equipment Straight Cane,Grab Bars Near Toilet,Grab Bars In Shower M2 PT-IP Current Condition Start: 07/03/25 13:06 Freq: NEEDED Status: Active Protocol: Document 07/03/25 09:10 [facility] (Rec: 07/03/25 13:12 [facility] [id number]) Physical Therapy Current Condition Current Condition Evaluation Date 07/03/25 Treatment Diagnosis LE tingling, dec balance Onset Date 07/02/25 M3 PT-IP Subjective Start: 07/03/25 13:06 Freq: NEEDED Status: Active Protocol: Document 07/03/25 09:10 [facility] (Rec: 07/03/25 13:12 [facility] [id number]) Subjective Physical Therapy Visit Type Type Initial Evaluation Visit Start Time 09:10 Visit Stop Time 09:38 Number of DENTAL OFFICE MANAGER Visits 0 Physical Therapy Visit Comments Patient Comments Patient reports he feels great, feels he my have overreacted about how he was feeling. Feels ready to go home. Agreeable to see PT for evaluation prior to discharge to assure safety. Denies tingling or difficulty with balance today Therapy Pain Assessment Pain When Pain Assessed At Rest Pain Present Pain Present Denied Pain M4 PT-IP Mobility and Gait Start: 07/03/25 13:06 Freq: NEEDED Status: Active Protocol: Document 07/03/25 09:10 [facility] (Rec: 07/03/25 13:12 [facility] [id number]) PT-Bed Mobility Assessment Supine to Sit Supine to Sit Independent Sit to Supine Sit to Supine Independent Scooting Scooting to Edge of Independent Bed Scooting Up and Down Independent in Bed PT-Transfer Assessment Sit to and From Stand Sit to and from Standby Assistance Stand Equipment Transfer Assistive None Device Transfer Ability Level of Assist Independent Gait Assessment Gait Gait Assistance Independent Required: Distance (Feet) 200 Able to Maintain Yes Weight Bearing Status During Gait Assistive Devices Assistive Device None Gait Deviations General Gait Pattern Within Normal Limits PT-Balance Assessment Sitting Balance and Reactions Static Sitting Normal Balance Ability Dynamic Sitting Normal Balance Ability Standing Balance and Reactions Static Standing Normal Balance Ability Dynamic Standing Normal Balance Ability M5 PT-IP Objective Assessments Start: 07/03/25 13:06 Freq: NEEDED Status: Active Protocol: Document 07/03/25 09:10 [facility] (Rec: 07/03/25 13:12 [facility] [id number]) Orientation Orientation/Cognition Level of Alertness Alert Orientation Name,Age,Month,Year,Place,Situation Safety Awareness Understands Safety Issues Memory Description No Deficits Noted Strength Upper Extremity Strength Assessment Within Functional Limits Sensation Assessment Sensation Gross Sensation WNL M7 PT-IP Assessment and Plan Start: 07/03/25 13:06 Freq: NEEDED Status: Active Protocol: Document 07/03/25 09:10 [facility] (Rec: 07/03/25 13:12 [facility] [id number]) PT Summary Assessment and Plan Potential Rehabilitation Excellent Potential Status of Condition Stable at Evaluation Summary Assessment Summary Patient is 85 y/o admitted to hospital yesterday due to tingling in his legs and feeling off balance. Pt. denies any of those symptoms today, states he feels great and is ready to go home. Agreeable to see PT for safety check prior to discharge from PT. Evaluation reveals 5/5 muscle strength throughout, independent with bed mobility, transfers, and gait with no evidence for balance dysfunction. No further PT needs. Patient ready for discharge home Goals Other Goals No PT goals. Pt. ready for discharge home. Frequency of Treatment Frequency Of Discharge Treatment Recommendations To Nursing Amount of Assist 1 Person Assist Needed Discharge Recommendations PT Discharge Home Recommendations Transportation Needs Private Vehicle at Discharge
--- NOTE | 2025-07-03 13:30 | CM.DANOTE ---
DCP Assessment note pt is a 85yo M admitted with TIA symptoms, has since resolved. per PT, cleared for home no needs. per provider, likely to dc today. 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 confirms lives alone in [place], indep, no DME, drives. has hearing aids he uses. reports feeling much better. has a friend that could transport him home. has lots of supports. is doing well at home. very indep. declines CM/DCP needs. P: dc home today with OP f/u likely, no CM needs at this time. will continue to follow should any needs arise CHIRAG [place] Discharge Planning/Care Management CM Discharge Assessment Start: 07/02/25 13:25 Freq: Status: Discharge Protocol: Document 07/03/25 13:29 [facility] (Rec: 07/03/25 13:30 [facility] [id number]) Discharge Planning Assessment Assigned Discharge CHIRAG [employer] Provider Adriel Correa Medicare Insurance Comment A[employer] Secondary DPOA/Assigned Rory, son Designee Name Contact Information [phone] Advance Directives? Yes Advance Directives Yes on File Prior Living House Arrangements Household Members none Type of Drives own vehicle transporation used prior to admit Independent with ADL Yes 's Is patient alert and Yes oriented? Discharge Plan Home Referrals Initiated None needed Review Status In Process Please Provide Date 07/03/25 Initial DC Assessment Was Performed Next Review Type Continued Stay Review
--- NOTE | 2025-07-14 09:48 | ED.ARRPALP ---
HPI - Arrhythmia/Palpitations General Chief Complaint: Arrhythmia/Palpitations Stated Complaint: Bilateral Leg Tingling Time Seen by Provider: 07/02/25 08:05 Source: EMS Mode of arrival: EMS History of Present Illness HPI narrative: 85-year-old male lives alone woke up this morning with slight tingling in his calves and persistent dizziness. Denies fevers, chills, nausea, vomiting, diarrhea, abdominal pain, chest pain, shortness of breath, dizziness, headache, and urinary symptoms. Related Data Home Medications ?Medication ?Instructions ?Recorded ?Confirmed loratadine 10 mg tablet (Claritin) 10 mg PO Q DAY ##0 06/27/12 07/07/25 cholecalciferol (vitamin D3) 50 50 mcg PO DAILY 02/05/20 07/07/25 mcg (2,000 unit) capsule magnesium 200 mg tablet 200 mg PO DAILY cramps 06/14/25 07/07/25 Previous Rx's ?Medication ?Instructions ?Recorded testosterone 2 pump topical DAILY #180 grams 10/05/24 amlodipine 5 mg tablet 5 mg PO DAILY #90 tabs 06/23/25 meloxicam 15 mg tablet 15 mg PO DAILY #90 tabs 06/23/25 simvastatin 10 mg tablet 10 mg PO QDAY #90 tabs 06/23/25 Allergies Allergy/AdvReac Type Severity Reaction Status Date / Time No Known Drug Allergies (NO Allergy Unknown Verified 07/07/25 07:42 KNOWN DRUG ALLERGIES) Review of Systems Review of Systems ROS Unobtainable: All systems reviewed & are unremarkable except as noted in HPI and below Patient History Medical History Do not resuscitate Primary osteoarthritis of both knees Impingement of right shoulder SVT (supraventricular tachycardia) Bilateral knee pain Hypogonadism in male Left hip pain Neurogenic claudication Degenerative arthritis of knee, bilateral Essential hypertension Overweight Elevated blood pressure reading History of polymyalgia rheumatica Mixed hyperlipidemia Primary osteoarthritis involving multiple joints Chronic low back pain History of colonic polyps History of melanoma Wears glasses Hearing loss Rheumatic fever Mumps Measles Herpes Chicken pox Facet arthropathy, lumbar Lumbar radiculopathy Erectile dysfunction after radical prostatectomy History of malignant neoplasm of prostate Left flank pain History of external beam radiation therapy History of nephrolithiasis History of prostate cancer History of abdominal pain History of back pain Kidney stone (~2017) Surgical History Anesthesia History of shoulder surgery (~1981) History of lumbar discectomy H/O arthroscopic knee surgery Previous back surgery (~1984) H/O hernia repair Family History Father Stroke Diabetes mellitus Mother Dementia Social History marital status: details: 01/2021 (Anisha - brain aneurysm) number of children: 5 household members: none lives independently: Yes caregiver/support person: No housing: house occupational status: other current occupational exposures/hazards: No stephen/evangelical: Spiritual special stephen needs: No leisure activities: exercise, reading and volunteer work seatbelt use: always water heater temp set < 120 deg: Yes working smoke detector in home: Yes fire extinguisher in home: Yes carbon monox detector in home: Yes firearms in home: No do you feel safe at home: Yes Tobacco: How many years used: 10 second hand exposure: Yes alcohol intake: current during the past year weight has: remained stable well-balanced diet: daily or most days daily servings fruits/ve-1 caffeine: Yes eating out: 1-3 times/week Type(s) of exercise: walking, occasional exercise and other frequency: 5-6 times per week duration: < 15 minutes/day Smoking Status: Never smoker alcohol intake frequency: 0-2 drinks per day Exam Initial Vital Signs Initial Vital Signs: Vital Signs Temperature 98.7 F 07/02/25 07:57 Pulse Rate 58 L 07/02/25 07:57 Respiratory Rate 16 07/02/25 07:57 Blood Pressure 173/76 H 07/02/25 07:57 Pulse Oximetry 96 07/02/25 07:57 Oxygen Delivery Method Room Air 07/02/25 07:57 Const General: cooperative, healthy appearing, comfortable, well developed and well hydrated Nutritional Appearance: average body habitus [facility] Head: normal to inspection Ears: external ears normal Nose: external nose normal and nares normal Face and sinus: sinuses nontender, face symmetric, ecchymosis not on the right, not on the left and not bilaterally, erythema not on the right, not on the left and not bilaterally and edema not on the right, not on the left and not bilaterally Mouth: lip normal Eyes General: Yes appearance normal, both eyes and all related structures Eyelids: eyelids normal Sclera: sclerae normal Pupils: PERRL Neck Neck: normal visual inspection Resp Effort & Inspection: normal respiratory effort and able to speak in complete sentences Cardio Rate: regular rate Rhythm: regular rhythm Pulses: radial pulses present GI Inspection: normal to inspection and non-distended General: bimanual renal exam normal bilaterally Back/Spine/Pelvis Back: normal to inspection Skin General: no rashes or lesions noted Neuro General: patient alert, patient awake, patient oriented x3, gait normal, moves all extremities, normal light touch, pain and propioception, no focal motor deficits and CN's II-XI intact bilaterally Cognition: normal cognition Speech: speech normal Gait: normal gait Motor: muscle tone normal throughout Sensory Exam: no sensory deficits noted Extrem General: normal to inspection Psych Appearance: grossly normal Mental Status: mental status grossly normal Speech and Movement: speech and movement normal Mood: congruent mood Attitude: cooperative Thought Process: normal Thought Content: normal Judgment: judgment good Course Orders Ordered: Discontinued Medications Acetaminophen (Acetaminophen 325 Mg Tablet) 650 mg PO Q6H PRN PRN Reason: Fever/Mild Pain (1-3) Amlodipine Besylate (Amlodipine 5 Mg Tablet) 5 mg PO DAILY [facility] Last Admin: 07/03/25 09:48 Dose: 5 mg Documented By: Aspirin (Aspirin 81 Mg Chew Tab) 324 mg PO NOW ONE Stop: 07/02/25 08:22 Last Admin: 07/02/25 09:03 Dose: 324 mg Documented By: HERNANDEZ Atorvastatin Calcium (Atorvastatin 20 Mg Tablet) 10 mg PO BEDTIME [facility] Last Admin: 07/02/25 20:47 Dose: 10 mg Documented By: EMI Sodium Chloride (Normal Saline 0.9%) 1,000 mls @ 50 mls/hr IV CONT [facility] Last Infusion: 07/03/25 12:05 Dose: Infused Documented By: Admin: 07/02/25 17:03 Dose: 50 mls/hr Documented By: BETARICE Loratadine (Loratadine 10 Mg Tablet) 10 mg PO DAILY [facility] Last Admin: 07/03/25 09:47 Dose: 10 mg Documented By: Magnesium Oxide (Magnesium Oxide 400 Mg Tablet) 200 mg PO DAILY [facility] Last Admin: 07/03/25 09:45 Dose: 200 mg Documented By: MS Meclizine HCl (Meclizine Hcl 12.5 Mg Tablet) 25 mg PO NOW ONE Stop: 07/02/25 13:05 Last Admin: 07/02/25 14:06 Dose: 25 mg Documented By: RB Meloxicam (Meloxicam 7.5 Mg Tablet) 15 mg PO DAILY [facility] Last Admin: 07/03/25 09:46 Dose: 15 mg Documented By: MS Naloxone HCl (Naloxone 0.4 Mg/Ml Vial) 0.2 mg IV Q2MIN PRN PRN Reason: Opiate Reversal Nf-Testosterone 20. 25 Mg/1.25 Gram (1. 62 %) Gel In Metered -Dose Pum 2 pump TOP DAILY [facility] Last Admin: 07/03/25 09:49 Dose: Not Given Documented By: MS Vitamin D (Cholecalciferol (Vitamin D3) 1,000 Unit Tablet) 2,000 unit PO DAILY [facility] Last Admin: 07/03/25 09:47 Dose: 2,000 unit Documented By: MDM - Arrhythmia/Palpitations Lab Data 07/02/25 08:12 07/02/25 08:12 Labs: Lab Results 07/02/25 07/02/25 Range/Units 08:12 08:55 WBC 3.6 L (4.5-11.0) X10^3/uL RBC 4.50 (4.5-5.9) X10^6/uL Hgb 15.3 (13.5-17.5) g/dL Hct 44.0 (41-53) % MCV 97.9 (80-100) fL MCH 34.0 (26-34) PG MCHC 34.7 (30-36) % RDW 12.7 (11.6-14.8) % Plt Count 148 L (150-400) X10^3/uL Neut % (Auto) 62.9 (50-75) % Lymph % (Auto) 24.9 L (25-40) % [place] % (Auto) 8.4 (3-14) % Eos % (Auto) 2.7 (2-4) % Baso % (Auto) 1.1 (0-2) % Neut # (Auto) 2300 (3269-6930) /uL Lymph # (Auto) 900 L (1765-5545) /uL [place] # (Auto) 300 (0-900) /uL Eos # (Auto) 100 (0-450) /uL Baso # (Auto) 0 (0-100) /uL PT 10.3 (9.4-12.5) SECONDS INR 0.9 (0.9-1.3) APTT 29 (25.1-36.5) SECONDS Sodium 137 (137-145) mmol/L Potassium 4.1 (3.4-5.1) mmol/L Chloride 105 (98-107) mmol/L Carbon Dioxide 23 (22-32) mmol/L BUN 20 (9-20) mg/dL Creatinine 0.72 (0.66-1.25) mg/dL Estimated GFR > 60 (>60) mL/min BUN/Creatinine Ratio 27.8 H (6-22) Glucose 159 H (70-99) mg/dL Hemoglobin A1c 5.2 (4.0-6.0) % Calcium 9.3 (8.4-10.2) mg/dL Magnesium 2.1 (1.6-2.3) mg/dL Total Bilirubin 1.0 (0.2-1.3) mg/dL AST 38 (17-59) IU/L ALT 30 (<50) IU/L Alkaline Phosphatase 70 (38-126) U/L Total Creatine Kinase 176 H (55-170) U/L Troponin I < 0.012 (0.01-0.034) ng/mL NT-Pro-B Natriuret Pep 64 (<450) pg/mL Total Protein 7.3 (6.3-8.2) g/dL Albumin 4.7 (3.5-5.0) g/dL Globulin 2.6 (1.7-4.1) g/dL Albumin/Globulin Ratio 1.8 (1.0-2.8) Triglycerides 107 (35-150) mg/dL Cholesterol 179 (140-199) mg/dL LDL Cholesterol, Calc 78 (<100) mg/dL HDL Cholesterol 80 H (40-60) mg/dL Lipase 69 (23-300) U/L Urine Color Yellow Urine Appearance Clear Urine pH 6.0 (4.5-8.0) Ur Specific [place] 1.015 (1.000-1.035) Urine Protein Negative (Negative) Urine Glucose (UA) Negative (Negative) g/dL Urine Ketones Negative (NEGATIVE) Urine Occult Blood Negative (Negative) Urine Nitrate Negative (Negative) Urine Bilirubin Negative (NEGATIVE) Urine Urobilinogen 0.2 (0.2) E.U./dL Ur Leukocyte Esterase Negative (NEGATIVE) Urine RBC None seen (0-5/HPF) Urine WBC None seen (0-5/HPF) Ur Squamous Epith Cells 0-1 /hpf (0-5/HPF) Urine Bacteria None seen (None) Ur Culture Indicated? Cult not indicated Vol Urine Centrifuged 10ml (spun) Ethyl Alcohol < 10 (<10) mg/dL Point of Care Testing Glucose POC 159 MDM Narrative Medical decision making narrative: CODE NEURO: Pt presents with stroke like sxg. Chest x-ray to evaluate for evidence of CHF. EKG/troponin to evaluate for evidence of arrhythmia/ACS/AMI. Labwork to evaluate for evidence of anemia, electrolyte abnl including hypokalemia, hyperkalemia, hyponatremia, hypernatremia, hyperglycemia, hypoglycemia. CT brain to evaluate for evidence of mass/CVA/TIA. Neurology Consult. Admit for workup for suspected CVA. Last Known Well Time: 7 AM NIHSS Completed within 15 min of pt's arrival and score is: 1. Critical Care Time Critical Care Time Attestation: Critical Care Time: 35 minutes excluding time spent performing procedures, treating other patients and teaching time. Critical Condition/Vital Organ System Affected: Brain Critical Intervention: Immediate imaging and evaluation Discharge Plan Departure Patient Disposition: Admitted as Observation Clinical Impression: TIA (transient ischemic attack) Admit Date/Time: 07/02/25 13:22 Admit Provider: Albino Gonzales
== END 2025-07-03 13:16 | disposition home or self-care (01) ==
LOC: ED 08:44 → AC 13:23
PROVIDERS: Admitting Provider Internal Medicine; Emergency Provider Emergency Medicine; PCP Internal Medicine; Referring Provider Emergency Medicine; Visit Provider Internal Medicine
DX: R42 Dizziness and giddiness (principal); R20.2 Paresthesia of skin; I47.10 Supraventricular tachycardia, unspecified; G89.29 Other chronic pain; M54.50 Low back pain, unspecified; M25.562 Pain in left knee; M25.561 Pain in right knee; Z66 Do not resuscitate
CPT/HCPCS: 36415; 70450; 70496; 70498; 70551; 71045; 80053; 80061; 80320; 81001; 82550; 82962; 83036; 83690; 83735; 83880; 84484; 85025; 85610; 85730; 93005; 93306; 96360; 96361; 97161; 99284; 99291; G0378; J7030; Q9967

== ENCOUNTER → 2025-07-12 07:28 | Outpatient (CLI) | payer MEDICARE, SELFPAY ==
[2025-07-02 13:25] VITALS: BMI 25.5
--- NOTE | 2025-07-12 07:30 | DI.US.S_ITS ---
PROCEDURE: US THYROID INDICATIONS: thyroid nodule on CTA TECHNIQUE: Real-time scanning was performed of the thyroid gland, with image documentation. COMPARISON: [facility], MR, MR HEAD/BRAIN WO CON, 07/02/2025, 18:01. [facility], CT, CT ANGIO HEAD AND NECK, 07/02/2025, 8:41. [facility], CT, CT STROKE, 07/02/2025, 8:41. FINDINGS: Thyroid: Right lobe measures 4.3 x 1.6 x 2.3 cm. Left lobe measures 3.8 x 1.7 x 1.9 cm. Isthmus is 0.5 cm thick. Echotexture is homogeneous. Nodule number: 1 Location: Right posterior mid Size: 1.3 x 1.2 x 1.3 cm. Composition: Solid Echogenicity: Isoechoic Shape: wider than tall. Margins: Smooth Echogenic foci: Macro calcifications Total points: 4 ACR TI-RADS category: 5 IMPRESSION: Category 5 lesion. Secondary to size, FNA is recommended. ACR TI-RADS definitions and recommendations: TI-RADS 1 (benign): 0 points. FNA not needed. TI-RADS 2 (not suspicious): 2 points. FNA not needed. TI-RADS 3: 3 points. * FNA if 2.5 cm or larger, follow up if 1.5 cm or larger (at 1, 3, and 5 years). TI-RADS 4: 4-6 points. * FNA if 1.5 cm or larger, follow up if 1 cm or larger (at 1, 2, 3, and 5 years). TI-RADS 5: 7 points or more. * FNA if 1 cm or larger, follow up if 0.5 cm or larger (every year for 5 years). Dictated by: Tatum Michaels M.D. on 07/12/2025 at 15:19 Approved by: Tatum Michaels M.D. on 07/12/2025 at 15:22
== END ==
PROVIDERS: PCP Internal Medicine; Referring Provider Internal Medicine; Visit Provider Internal Medicine
DX: E04.1 Nontoxic single thyroid nodule (principal)
CPT/HCPCS: 76536